=== PATIENT | female | born 1990 | race Two or more races ===

== ENCOUNTER 2024-09-12 12:23 | Emergency (ER) | payer MEDICAID, SELFPAY ==
[2024-09-12 12:36] VITALS: BP 117/69; PULSE 115; RESP 19; TEMP 39.2; O2SAT 96; BMI 30.8
--- NOTE | 2024-09-12 12:40 | XR_ITS ---
Examination: CT abdomen and pelvis without contrast. Coronal 3-D reconstructions. Sagittal 2-D reconstructions. Date and time of exam: September 12, 2024 at 1342 hours INDICATIONS: Right-sided flank pain with nausea today CTDI: vol (mGy): 8.78 DLP: (mGycm): 487 Technique: Axial images of the abdomen have been obtained, 3 mm slice thickness Intravenous contrast material has not been administered. Low dose protocols were performed. One or more of the following dose reduction techniques were used; automated exposure control, adjustment of the mA and/or KV according to patient size, use of iterative reconstruction technique. Findings: No focal liver or splenic lesions Hepatomegaly 21 cm No gallstones No pancreatic or adrenal mass Mild right hydronephrosis, 9 mm lower pole calculus, 14 mm calculus in the right renal pelvis No left hydronephrosis Aorta normal size Normal appendix No bowel obstruction Retroverted uterus No bladder mass or bladder calculi Intact osseous structures IMPRESSION: Mild right hydronephrosis 9 mm lower pole right renal calculus 14 mm calculus in the right renal pelvis
--- NOTE | 2024-09-12 12:41 | XR_ITS ---
Examination: AP chest single view Technique one AP portable upright chest single view Exam date and time: September 12, 2024 1304 hours INDICATIONS: Fever coughing today. FINDINGS: Normal heart size Lungs are clear. The osseous structures are intact IMPRESSION: No active disease
--- NOTE | 2024-09-12 12:42 | XR_ITS ---
Examination: Abdomen sonogram, Limited Date and time of exam: September 12, 2024 1341 hours INDICATIONS: Right-sided abdominal pain beginning 3 days ago with fever Technique: Real-time blackwell scale transabdominal sonographic images of the upper abdomen obtained. Findings: Normal gallbladder Normal common bile duct 0.3 cm Pancreatic head 2.2 cm Liver 17.8 cm smooth contour no focal liver lesions Normal hepatopedal portal venous flow Patent IVC IMPRESSION: Normal gallbladder Normal common bile duct Moderate hepatomegaly no focal liver lesions
--- NOTE | 2024-09-12 12:51 | PC.NURSE ---
pt here with c/o right abd pain X 2 days
[2024-09-12] MEDS: SODIUM CHLORIDE 0.9% 1000 ML 1,000 ML 999 ML IV (12:54)
[2024-09-12] MEDS: KETOROLAC INJ 30 MG/ML VIAL IVP (12:55)
[2024-09-12] MEDS: MORPHINE SULF INJ 10 MG/ML VIAL 4 MG IVP (12:57)
[2024-09-12] MEDS: ONDANSETRON INJ 2 MG/ML INJ 2 ML 4 MG IV (13:00)
[2024-09-12] MEDS: ACETAMINOPHEN IVPB 1,000 MG/100 ML VIAL 250 MG IV (13:01)
[2024-09-12 13:05] LABS: Lactate (Lactic Acid) 2.1 mMol/L (0.4-2.0)
[2024-09-12 13:06] VITALS: BP 120/70; PULSE 123; RESP 18; O2SAT 97
[2024-09-12 13:06] LABS: Collection Type, Urine Clean Catch
[2024-09-12 13:10] LABS: Basophils % (Auto) 0 % (0-2.5); Eosinophils % (Auto) 0 % (0-10); Hematocrit 39.3 % (36.0-46.0); Hemoglobin 13.6 g/dL (12.0-16.0); Immature Granulocytes % (Auto) 1 % (0-0); Immature Granulocytes Auto 0.17 Thou/mm3 (0.00-0.00); Lymphocytes # (Auto) 0.5 Thou/mm3 (1.0-4.8); Lymphocytes % (Auto) 2 % (10-50); Mean Corpuscular HGB Conc 34.6 g/dl (31.0-37.0); Mean Corpuscular Hemoglobin 30.2 pg (25.0-35.0); Mean Corpuscular Volume 87 fL (80-100); Monocytes # (Auto) 0.8 Thou/mm3 (0.0-0.8); Monocytes % (Auto) 4 % (0-12); Neutrophils # (Auto) 22.2 Thou/mm3 (1.8-7.7); Neutrophils % (Auto) 94 % (37-80); Nucleated Red Blood Cell % 0 /100 WBC (0); Platelet Count 264 Thou/mm3 (140-440); RDW Standard Deviation 40.6 fL (36.4-46.3); White Blood Count 23.7 Thou/mm3 (3.6-11.0)
[2024-09-12 13:11] LABS: HCG Qualitative,Urine Negative
--- NOTE | 2024-09-12 13:19 | PD.EDABDPN ---
ED Abdominal Pain RME/HPI General Chief Complaint: Abdominal Pain Stated complaint: Abdominal pain right lower, vomiting Time seen by provider: 09/12/24 12:27 Arrival date/time: 09/12/24 12:23 RME / HPI RME / HPI narrative: This section includes all my notes and documentations, including HPI, PE, and ED course.? Delmer Mccann MD HPI: 34 year old female presents to the ED for a couple days of right flank pain. With subjective fever and chills on and off. No severe body aches and malaise. No dysuria or hematuria or difficulty urinating or other urinary symptoms. No cough or congestion. No sore throat. No constipation or diarrhea. No history abdominal surgery. No other complaints. ROS: All negative except as documented in HPI. Physical Exam: General:? Alert and oriented.? No acute distress when remaining still.?? Eyes:? Conjunctivae and lids clear.? ENT:? No nasal congestion.? Neck:? Supple.? Heart:? RRR.? Lungs:? No respiratory distress.? Good air movement.? No rhonchi, wheezing, rales.?? Abdomen:? Soft with right sided tenderness, difficult to localize further. Normal BS. No distension. No guarding or reboud. Back: Equivocal right CVA tenderness. Skin:? Warm and dry.?? Neuro:? Alert and oriented X 3.?? I reviewed all diagnostic test results. My interpretation of the chest x-ray is no active disease. My review of the abdomen/pelvis CT report is no acute findings. My review of the gallbladder ultrasound report is normal gallbladder, normal common bile duct. Blood tests remarkable for WBC 23.7 and LA 2.1. UA showed RBC and WBC and bacteria. At this point, diagnoses include?kidney infection. Treatment here included?IVF, Zofran, Toradol, Morphine, and Rocephin. Significant improvement noted. Recommended admission for pyelonephritis and possible sepsis. Patient declined. Discussed risks, including being fatal. We still couldn't change her mind. Based on my best medical judgment, made decision no further evaluation or treatment indicated at this time.? Patient understands and agrees to the discharge instructions customized and printed, see below. Discharge instructions from Dr. Mccann: 1. After evaluation, you have right kidney infection. We are going to treat this at home as you elected. 2. Take cefdinir to kill the germs causing the infection.? Increase oral fluid to flush it out.? Maintain clear urine.? If dark or yellow, increase oral fluid. 3. Zofran for nausea/vomiting.? Toradol and Tylenol with codeine for pain. 4. See a private doctor on 09/15/2024 for recheck.? Ask to check the final urine culture results from today to make sure cefdinir doesn't need to be changed due to resistance. 5. Seek immediate medical care with worsening, fever, or with any concerns. Delmer Mccann MD Related Data Home Medications ?Medication ?Instructions ?Recorded ?Confirmed ferrous sulfate 325 mg (65 mg 325 mg PO QDAY 02/12/20 02/12/20 iron) tablet (iron) folic acid 1 mg tablet 1 mg PO QDAY 02/12/20 02/12/20 vit no.95-ferrous 1 tab PO QDAY 02/12/20 02/12/20 fumarate 28 mg-folic acid 800 mcg tablet () metformin 500 mg tablet 500 mg PO BID 09/13/24 09/13/24 Previous Rx's ?Medication ?Instructions ?Recorded acetaminophen 300 mg-codeine 30 mg 2 tab PO TID PRN pain #20 tabs 09/12/24 tablet cefdinir 300 mg capsule 300 mg PO BID #14 caps 09/12/24 ketorolac 10 mg tablet 10 mg PO Q8H PRN pain 5 days #14 09/12/24 tabs ondansetron 4 mg disintegrating 4 mg PO TID PRN nausea and 09/12/24 tablet vomiting 5 days #10 tabs Allergies Allergy/AdvReac Type Severity Reaction Status Date / Time No Known Allergies Allergy Verified 02/12/20 11:50 Review of Systems Review of Systems Systems Reviewed: All systems reviewed, normal except as documented Past Medical History Past Medical History ENDOCRINE: Positive Diabetes Mellitus Type 2 HEMATOLOGIC: Positive Blood Disorders (BLOOD TRANSFUSION AFTER 1ST BABY) OTHER HISTORY: Positive Blood Transfusions (ANEMIC) Family History FAMILY HISTORY: Negative Family Psychiatric Problems, Family Respiratory Disorders, Family Cardiac Disorders, Family Gastrointestinal Problems, Family Cancer, Family Surgery or Family Anesthesia Reaction Surgical History SURGICAL: Positive Section (X2) Social History SMOKING STATUS: Never smoker SECOND HAND EXPOSURE: No ED Exam Narrative Physical exam: As noted in HPI Course Quality Measures none Orders Category Date Time Status Saline [Insert IV] NOW Care 09/12/24 12:[address] abdomen pelvis wo con Stat Exams 09/12/24 12:40 Completed US gall bladder Stat Exams 09/12/24 12:42 Completed XR chest 1V portable Stat Exams 09/12/24 12:41 Completed Amylase Stat Lab 09/12/24 12:55 Completed BMP [Basic Metabolic Panel] Stat Lab 09/12/24 12:55 Completed Blood Culture (Lab) Stat Lab 09/12/24 12:55 Results CBC Stat Lab 09/12/24 12:55 Completed CRP [C-Reactive Protein] Stat Lab 09/12/24 12:55 Completed ESR [Sed Rate (ESR)] Stat Lab 09/12/24 12:55 Completed HCG Qualitative,Urine Stat Lab 09/12/24 13:00 Completed HCG,Qualitative Serum Stat Lab 09/12/24 12:55 Completed Lactate (Lactic Acid) Stat Lab 09/12/24 12:55 Completed Lipase Stat Lab 09/12/24 12:55 Completed Liver Panel Stat Lab 09/12/24 12:55 Completed Magnesium Stat Lab 09/12/24 12:55 Completed Procalcitonin Stat Lab 09/12/24 12:55 Completed UA, C/S IF [Urinalysis, C/S if Indicated] Stat Lab 09/12/24 13:00 Completed Urine Culture Stat Lab 09/12/24 13:00 Completed Acetaminophen Ivpb [Ofirmev Inj] Med 09/12/24 12:37 Discontinued 1,000 mg in 100 ml IV NOW Ketorolac Inj [Toradol Inj] Med 09/12/24 12:37 Discontinued 30 mg IVP X1 ONE Morphine Inj Med 09/12/24 12:37 Discontinued 4 mg IVP X1 ONE Ondansetron Inj [Zofran Inj] Med 09/12/24 12:37 Discontinued 4 mg IV X1 ONE Sodium Chloride 0.9% 1000 ml [Ns] 1,000 ml Med 09/12/24 12:38 Discontinued IV 999 mls/hr cefTRIAXone [Rocephin] 1,000 mg Med 09/12/24 12:37 Discontinued Sodium Chloride 0.9% (P) [Ns 0.9% (P)] 50 ml IV X1 Vital Signs Vital signs: Vital Signs Temperature 102.6 F H 09/12/24 12:36 Pulse Rate 115 H 09/12/24 12:36 Respiratory Rate 19 09/12/24 12:36 Blood Pressure 117/69 09/12/24 12:36 Pulse Oximetry (%) 96 09/12/24 12:36 Oxygen Delivery Method Room Air 09/12/24 12:36 Pulse ox is 96% on room air which is adequate. Abdominal Pain MDM MDM Narrative MDM Narrative:: Tanika Sutton am scribing for and in the presence of Dr. Mccann. Patient data External records reviewed:: [facility] previous records (I reviewed H&P on 02/12/2020) Clinical information provided by:: patient Social determinants that could affect healthcare access:: none Patient has the following chronic illnesses:: No chronic medical hx reported How is presenting disease/condition affected by chronic disease/condition?: no chronic disease Evaluation data The following diagnostics were reviewed and interpreted by me:: lab results and radiology exam(s) Lab and/or radiology exams considered but not ordered:: None Interpretation Summary: Pyelonephritis Medications / Prescriptions Medications or Prescriptions considered but not ordered:: None Medication administrations:: Medication Administration History Discontinued Medications Acetaminophen (Ofirmev Inj) 1,000 mg in 100 mls @ 250 mls/hr IV NOW ONE Stop: 09/12/24 13:00 Last Infusion: 09/12/24 13:19 Dose: Infused Documented By: Admin: 09/12/24 13:01 Dose: 250 mls/hr Documented By: [facility] Ceftriaxone Sodium 1,000 mg/ (Sodium Chloride) 50 mls @ 100 mls/hr IV X1 ONE Stop: 09/12/24 13:06 Last Infusion: 09/12/24 13:41 Dose: Infused Documented By: Admin: 09/12/24 13:20 Dose: 100 mls/hr Documented By: Sodium Chloride (Ns) 1,000 mls @ 999 mls/hr IV .Q1H1M ONE Stop: 09/12/24 13:38 Last Infusion: 09/12/24 13:41 Dose: Infused Documented By: Admin: 09/12/24 12:54 Dose: 999 mls/hr Documented By: [facility] Ketorolac Tromethamine (Ketorolac Inj 30 Mg/Ml Vial) 30 mg IVP X1 ONE Stop: 09/12/24 12:38 Last Admin: 09/12/24 12:55 Dose: 30 mg Documented By: ORI Morphine Sulfate (Morphine Sulf Inj 10 Mg/Ml Vial) 4 mg IVP X1 ONE Stop: 09/12/24 12:38 Last Admin: 09/12/24 12:57 Dose: 4 mg Documented By: ORI Ondansetron HCl (Ondansetron Inj 2 Mg/Ml Inj 2 Ml) 4 mg IV X1 ONE; Protocol Stop: 09/12/24 12:38 Last Admin: 09/12/24 13:00 Dose: 4 mg Documented By: ORI Patient given toradol, morphine, Zofran, tylenol, ceftriaxone, IV fluids. Consultations Consultation(s) initiated? (list below): No Diagnosis Differential diagnosis abdominal pain: abdominal pain, calculus of kidney, constipation, diverticulitis, endometriosis, gastroenteritis, small bowel obstruction and other (UTI, Pyelonephritis ) Most likely diagnosis given after review of the tests above:: kidney infection Admission Indicated Admission indicated?: indicated Explain why admission is indicated or not indicated:: Patient declined hospitalization Admission Request Was there a request for admission?: No Admission Attestation Admission request attestation: Patient declined hospitalization Disposition Plan Disposition Plan: Discharge Discharge Attestation Discharge Attestation: The patient and all family members were given an opportunity to ask questions and understood the discharge instructions. Discharge instructions specifically effects, indications for sooner follow up or return to the emergency department, and the expected course of current diagnosis. Patient condition: Stable Discharge Plan Plan Patient Disposition: HOME (Self Care) Prescriptions/Referrals Prescriptions/Med Rec: New acetaminophen-codeine 300-30 mg tablet 2 tab PO TID MDD 6 PRN (Reason: pain) Qty: 20 0RF ketorolac 10 mg tablet 10 mg PO Q8H PRN (Reason: pain) 5 Days Qty: 14 0RF ondansetron 4 mg tablet,disintegrating 4 mg PO TID PRN (Reason: nausea and vomiting) 5 Days Qty: 10 0RF cefdinir 300 mg capsule 300 mg PO BID Qty: 14 0RF No Action PNV cmb#95-ferrous fumarate-FA [] 28 mg iron- 800 mcg Tablet 1 tab PO QDAY ferrous sulfate [iron] 325 mg (65 mg iron) Tablet 325 mg PO QDAY folic acid 1 mg Tablet 1 mg PO QDAY metformin 500 mg tablet 500 mg PO BID Referrals: Ottoniel Fitch MD [Primary Care Provider] - In 1 week Problem List Clinical Impression: Kidney infection Patient/Caregiver Discharge Instructions Discharge Activity: activity as tolerated Education Materials: ED Pyelonephritis, Female (Adult) Additional Instructions: Discharge instructions from Dr. Mccann: 1. After evaluation, you have right kidney infection. We are going to treat this at home as you elected. 2. Take cefdinir to kill the germs causing the infection.? Increase oral fluid to flush it out.? Maintain clear urine.? If dark or yellow, increase oral fluid. 3. Zofran for nausea/vomiting.? Toradol and Tylenol with codeine for pain. 4. See a private doctor on 09/15/2024 for recheck.? Ask to check the final urine culture results from today to make sure cefdinir doesn't need to be changed due to resistance. 5. Seek immediate medical care with worsening, fever, or with any concerns. Print Language: Congolese Stand Alone Forms: Anabella Award Info., Patient Portal Info Letter
[2024-09-12] MEDS: cefTRIAXone 1,000 MG in SODIUM CHLORIDE 0.9% (P) 50 ML 100 MG IV (13:20)
[2024-09-12 13:28] LABS: HCG,Qualitative Serum Negative
[2024-09-12 13:43] LABS: Alanine Aminotransferase 13 U/L (10-49); Albumin, Serum 4.8 gm/dL (3.5-5.0); Alkaline Phosphatase 114 U/L (46-116); Anion Gap 11 (7-16); Aspartate Amino Transferase 14 U/L (0-34); BUN/Creatinine Ratio 11 Ratio (12-20); Bilirubin,Direct 0.4 mg/dL (0.0-0.3); Bilirubin,Total 1.3 mg/dL (0.3-1.2); Blood Urea Nitrogen 11 mg/dL (9-23); Calcium 9.5 mg/dL (8.3-10.6); Carbon Dioxide 21.7 mMol/L (20.0-31.0); Chloride 104 mMol/L (98-107); Estimated Creatinine Clearance 69.4 mL/min (>60); Glucose 153 mg/dL (74-106); Lipase 32 U/L (12-53); Magnesium 1.8 mg/dL (1.6-2.6); Osmolality,Calculated 276 (275-295); Potassium 3.6 mMol/L (3.4-5.1); Sodium 137 mMol/L (136-145); Total Protein 7.8 gm/dL (5.7-8.2); eGFR > 60 See Note
[2024-09-12 13:52] LABS: Bacteria,Urine Rare; Bilirubin,Urine Negative (Negative); Blood,Urine 1+ (Negative); Color,Urine Yellow (Lt Yel-Yel); Glucose, Urine Negative (Negative); Ketones,Urine Negative (Negative); Leukocyte Esterase,Urine Positive (Negative); Nitrite,Urine Negative (Negative); Protein,Urine 1+ (Neg - Trace); RBC,Urine 16 /hpf (0-3); Specific Gravity,Urine 1.031 (1.001-1.035); Squamous Epithelial Cell,Urine 10 /hpf (0-5); Urobilinogen,Urine Negative mg/dL (0.0-1.0); WBC,Urine 169 /hpf (0-5)
[2024-09-12 13:53] LABS: Clarity,Urine Hazy (Clear/Hazy); Culture Indicated,Urine Yes
[2024-09-12 14:00] VITALS: BP 100/60; PULSE 97; RESP 16; TEMP 36.9; O2SAT 96
[2024-09-12 14:03] LABS: Amylase 50 U/L (30-118); C-Reactive Protein 11.9 mg/dL (0.0-0.9); Procalcitonin 1.93 ng/ml (0.0-0.49)
[2024-09-12 14:16] LABS: Sed Rate (ESR) 62 mm/hr (0-20)
[2024-09-12 15:35] VITALS: BP 104/56; PULSE 108; RESP 16; O2SAT 98
[2024-09-12 16:03] LABS: Reflex Lactate? Y
== END 2024-09-12 15:35 | disposition home or self-care (01) ==
PROVIDERS: Emergency Provider Emergency Medicine; PCP Family Medicine
DX: N15.9 Renal tubulo-interstitial disease, unspecified (principal)
CPT/HCPCS: 36415; 71045; 74176; 76705; 80048; 80076; 81001; 81025; 82150; 83605; 83690; 83735; 84145; 84703; 85025; 85652; 86140; 87040; 87077; 87086; 87186; 96365; 96375; 99284; J0131; J0696; J1885; J2270; J2405; J7030; J7050

== ENCOUNTER 2024-09-12 20:02 | Inpatient (IN) | payer MEDICAID, SELFPAY ==
[2024-09-12] VITALS (8 sets, daily range): BP systolic 87–108; BP diastolic 49–67; PULSE 112–156; RESP 19–25; TEMP 36.8–39.5; O2SAT 95–97; BMI 30.8
--- NOTE | 2024-09-12 20:11 | PD.EDSYNC ---
ED Syncope RME/HPI General Chief Complaint: Syncope / Near Syncope Stated Complaint: NEAR SYNCOPE Time Seen by Provider: 09/12/24 20:10 Source: patient and EMS Arrival date/time: 09/12/24 20:02 Mode of arrival: EMS Limitations: no limitations RME / HPI RME / HPI narrative: Dr. Galeana?s Main ED Evaluation: A 34-year-old female was brought in by ambulance for evaluation following a near-syncopal episode. She had recently been seen at this facility earlier today by the previous provider with a clinical impression of a kidney infection and returns after experiencing shakes after starting her prescribed antibiotics (Cefdinir 300 mg BID). Per EMS report, the patient was diaphoretic on scene, tachycardic with a heart rate of 170 bpm, a temperature of 103?F, a blood sugar level of 196 mg/dL, and a blood pressure of 130/90. The patient reports right flank pain but notes that her symptoms have improved somewhat after receiving pain relief medication. Related Data Home Medications ?Medication ?Instructions ?Recorded ?Confirmed ferrous sulfate 325 mg (65 mg 325 mg PO QDAY 02/12/20 02/12/20 iron) tablet (iron) folic acid 1 mg tablet 1 mg PO QDAY 02/12/20 02/12/20 metformin 500 mg tablet 500 mg PO BID 09/13/24 09/13/24 Previous Rx's ?Medication ?Instructions ?Recorded acetaminophen 300 mg-codeine 30 mg 2 tab PO TID PRN pain #20 tabs 09/12/24 tablet acetaminophen 500 mg tablet 1,000 mg (2 x 500 mg) PO Q6H PRN 09/15/24 fever >99 5 days #20 tabs cephalexin 500 mg capsule 1,000 mg (2 x 500 mg) PO Q6H 11 09/15/24 days #88 caps omeprazole 40 mg capsule,delayed 40 mg PO QDAY 11 days #11 caps 09/15/24 release Allergies Allergy/AdvReac Type Severity Reaction Status Date / Time No Known Allergies Allergy Verified 02/12/20 11:50 Review of Systems Review of Systems Systems Reviewed: All systems reviewed, normal except as documented Past Medical History Past Medical History NEUROLOGIC: Negative Neurological Disorders or Seizures CARDIAC: Negative Cardiac Disorders or Congestive Heart Failure RESPIRATORY: Negative Chronic Obstructive Pulmonary Disease (COPD) GASTROINTESTINAL: Negative Gastrointestinal Disorders GENITOURINARY: Negative Genitourinary Disorders or Renal Disease MUSCULOSKELETAL: Negative Musculoskeletal Disorders ENDOCRINE: Positive Diabetes Mellitus Type 2; Negative Endocrine Disorders or Diabetes Mellitus Type 1 HEMATOLOGIC: Positive Blood Disorders (BLOOD TRANSFUSION AFTER 1ST BABY) OTHER HISTORY: Positive Blood Transfusions (ANEMIC); Negative Autoimmune Disease, Blood Transfusion Reaction or Anesthesia Reactions Family History FAMILY HISTORY: Negative Family Psychiatric Problems, Family Respiratory Disorders, Family Cardiac Disorders, Family Gastrointestinal Problems, Family Cancer, Family Surgery or Family Anesthesia Reaction Surgical History SURGICAL: Positive Section (X2) Social History SMOKING STATUS: Never smoker SECOND HAND EXPOSURE: No ED Exam Narrative Physical exam: GENERAL APPEARANCE: alert and oriented x 4, well-developed, well-nourished, no acute distress VITALS: All vitals were reviewed and the pulse ox is 96% on room air, which is normal according to my interpretation. HEENT: Normocephalic, atraumatic; pupils equal, round, reactive to light; EOMI; mucous membranes pink, moist; oropharynx clear NECK: Supple LUNGS: CTABL; no wheezes, no rales, no rhonchi HEART: Regular rate, regular rhythm; normal S1, S2; no murmurs ABDOMEN: non distended; normal BS; soft, no tenderness, no guarding, no rebound; no masses, no organomegaly, no hernia BACK: no CVA tenderness EXTREMITIES: atraumatic; no edema NEUROLOGIC: awake; alert and oriented x4; cranial nerves II-XII grossly intact; no focal sensory or motor deficits PSYCHIATRIC: appropriate mood and affect SKIN: warm, dry, normal color; no rashes General Limitations: Present no limitations Course Course Course Narrative: CXR is ordered for determining etiology of chest discomfort. 2010 Sepsis alert initiated. Orders made at this time are congruent with ED Adult Sepsis Order List. Re-evaluation is to be completed. 2040 Sepsis reassessment performed consisting of lab review, vitals, physical exam including auscultation of heart, lungs, and visual evaluation of capillary refills, mucosal membranes and extremities. Quality Measures Current suspected stage: sepsis Possible source: unknown Blood cultures ordered: completed in ED Antibiotic ordered: No Pertinent labs: 09/12/24 20:54 Lactic Acid 4.5 H* mMol/L (0.4-2.0) Procalcitonin 3.75 H ng/ml (0.0-0.49) Patient was seen less than 12 hours with sepsis work-up sepsis Orders Category Date Time Status Bedside COVID-19 Antigen Test NOW Care 09/12/24 21:51 Completed Manager Retention STAT Care 09/12/24 20:31 Completed Continuous Pulse Oximetry STAT Care 09/12/24 20:31 Completed EKG (ED ONLY) *Do not use* NOW Care 09/12/24 20:31 Completed In and Out Catheter X1PRN Care 09/12/24 20:31 Completed Insert IV NOW Care 09/12/24 20:31 Completed NPO STAT Care 09/12/24 20:31 Completed Strict Intake and Output Routine Care 09/12/24 20:31 Ordered EKG (ED Only) Stat Exams 09/12/24 20:31 Ordered XR chest 1V portable Stat Exams 09/12/24 20:30 Completed CBC Stat Lab 09/12/24 20:54 Completed Comprehensive Metabolic Panel Stat Lab 09/12/24 20:54 Completed LDH (Lactate Dehydrogenase) Stat Lab 09/12/24 20:54 Completed Lactate (Lactic Acid) Stat Lab 09/12/24 20:54 Completed Lipase Stat Lab 09/12/24 20:54 Completed Magnesium Stat Lab 09/12/24 20:54 Completed Phosphorous Stat Lab 09/12/24 20:54 Completed Procalcitonin Stat Lab 09/12/24 20:54 Completed Troponin I Stat Lab 09/12/24 20:54 Completed Doxycycline Inj [Vibramycin Inj] 200 mg Med 09/12/24 22:04 Discontinued Sodium Chloride 0.9% 250 ml [Ns] 250 ml IV X1 Ketorolac Inj [Toradol Inj] Med 09/12/24 20:30 Discontinued 30 mg IVP X1 ONE Magnesium Sulfate 2 GM Ivpb [Magnesium Sulfate Ivpb] Med 09/12/24 22:00 Discontinued 2 gm in 50 ml IV X1 Piper/Tazo Inj [Zosyn Inj] 3.375 gm Med 09/12/24 22:04 Discontinued Sodium Chloride 0.9% (P) [Ns 0.9% (P)] 50 ml IV X1 Sodium Chloride 0.9% 1000 ml [Ns] 1,000 ml Med 09/12/24 20:37 Discontinued IV 999 mls/hr Sodium Chloride 0.9% 1000 ml [Ns] 1,000 ml Med 09/12/24 22:00 Discontinued IV 999 mls/hr Sodium Chloride 0.9% 1000 ml [Ns] 1,365 ml Med 09/12/24 20:30 Discontinued IV 1,365 mls/hr Oxygen Delivery NOW RT 09/12/24 20:31 Completed Vital Signs Vital signs: Vital Signs Temperature 103.1 F H 09/12/24 20:08 Pulse Rate 156 H 09/12/24 20:08 Respiratory Rate 19 09/12/24 20:08 Blood Pressure 108/67 09/12/24 20:08 Pulse Oximetry (%) 95 09/12/24 20:08 Syncope MDM Narrative MDM Narrative:: Scribe Attestation: IPelon am scribing for and in the presence of Dr. Galeana. Provider Notation: Although this document has been carefully reviewed, there may still be some phonetic and other typographical errors. These errors are purely grammatical due to imperfections in the software program and should not be construed in any way to compromise the substance of the patient's medical care during this visit. Patient data External records reviewed:: [facility] previous records and EMS form Clinical information provided by:: patient and EMS Social determinants that could affect healthcare access:: none Patient has the following chronic illnesses:: See PMH How is presenting disease/condition affected by chronic disease/condition?: uneffected by Evaluation data The following diagnostics were reviewed and interpreted by me:: lab results and radiology exam(s) Lab and/or radiology exams considered but not ordered:: None Interpretation Summary: I personally reviewed the radiology data and agree with the radiologist's interpretation. Examination: AP chest single view TECHNIQUE: AP portable upright chest single view Exam date and time: September 12, 2024 2037 hours Comparison September 12, 2024 1304 hours INDICATIONS: Sepsis alert FINDINGS: Normal heart size Lungs are clear. The osseous structures are intact IMPRESSION: No active disease Dictated By: Jose Antonio Phelps MD Medications / Prescriptions Medications or Prescriptions considered but not ordered:: None Medication administrations:: Medication Administration History Discontinued Medications Acetaminophen (Acetaminophen 325 Mg Tablet) 650 mg PO Q6H PRN PRN Reason: Fever >101.5 Stop: 10/12/24 23:26 Acetaminophen (Acetaminophen 500 Mg Tablet) 1,000 mg PO X1 ONE Stop: 09/13/24 07:30 Last Admin: 09/13/24 07:36 Dose: 1,000 mg Documented By: CATRINA Acetaminophen (Acetaminophen 500 Mg Tablet) Confirm Administered Dose 1,000 mg PO .STK-MED ONE Stop: 09/13/24 07:28 Last Admin: 09/13/24 10:15 Dose: Not Given Documented By: CATRINA Non-Admin Reason: duplicate Acetaminophen (Acetaminophen 325 Mg Tablet) 650 mg PO Q6H PRN PRN Reason: Fever >100.3 Stop: 10/12/24 23:26 Last Admin: 09/15/24 01:08 Dose: 650 mg Documented By: HANH Comments: ok to give for rangel Admin: 09/14/24 14:23 Dose: 650 mg Documented By: Admin: 09/13/24 23:32 Dose: 650 mg Documented By: HANH Acetaminophen (Acetaminophen 325 Mg Tablet) 650 mg PO Q6H PRN PRN Reason: Fever >100.3 or mild pain Stop: 10/12/24 23:26 Acetaminophen (Acetaminophen 500 Mg Tablet) 1,000 mg PO Q6HR PRN PRN Reason: fever >100 Stop: 10/15/24 09:40 Al Hydrox/Mg Hydrox/Simethicone (Mg Hyd/Al Hyd/Meeta (Maalox Reg) Susp 30 Ml Udc) 30 ml PO X1 ONE Stop: 09/14/24 19:33 Last Admin: 09/14/24 20:27 Dose: 30 ml Documented By: HANH Celecoxib (Celecoxib 100 Mg Capsule) 100 mg PO BID PRN PRN Reason: pain Stop: 10/13/24 08:59 Celecoxib (Celecoxib 100 Mg Capsule) 100 mg PO BID PRN PRN Reason: PAIN 1-6 (mild-mod Stop: 10/13/24 08:59 Last Admin: 09/13/24 16:06 Dose: 100 mg Documented By: CATRINA Celecoxib (Celecoxib 100 Mg Capsule) 100 mg PO BID PRN PRN Reason: PAIN SCALE 4-6 (Moderate Stop: 10/13/24 08:59 Last Admin: 09/14/24 15:40 Dose: 100 mg Documented By: CATRINA Dextrose (Dextrose 50%-Water Inj 50 Ml Syringe) 25 ml IV Q15MIN PRN PRN Reason: BG 50-70 responsive npo pt Stop: 10/13/24 03:12 Dextrose (Dextrose 50%-Water Inj 50 Ml Syringe) 50 ml IV Q15MIN PRN PRN Reason: BG <50 OR BG <70 & pt unresponsive Stop: 10/13/24 03:12 Enoxaparin Sodium (Enoxaparin Sod Inj 40 Mg/0.4 Ml Syringe) 40 mg SC QDAY BOGDAN Stop: 09/27/24 08:59 Last Admin: 09/15/24 10:57 Dose: 40 mg Documented By: Admin: 09/14/24 09:03 Dose: 40 mg Documented By: Admin: 09/13/24 08:37 Dose: 40 mg Documented By: CATRINA Glucagon (Glucagon Inj 1 Mg Vial) 1 mg IM Q15MIN PRN PRN Reason: BG <70, and no IV access Sodium Chloride (Ns) 1,365 mls @ 1,365 mls/hr 30 ml/kg infuse over 60 min (1365 ml) IV .Q1H ONE Stop: 09/12/24 21:29 Last Infusion: 09/12/24 22:14 Dose: Infused Documented By: Admin: 09/12/24 21:14 Dose: 1,365 mls/hr Documented By: KVNG Sodium Chloride (Ns) 1,000 mls @ 999 mls/hr IV .Q1H1M ONE Stop: 09/12/24 21:37 Last Infusion: 09/12/24 22:14 Dose: Infused Documented By: Admin: 09/12/24 21:13 Dose: 999 mls/hr Documented By: KVNG Magnesium Sulfate (Magnesium Sulfate Ivpb) 2 gm in 50 mls @ 25 mls/hr IV X1 ONE Stop: 09/12/24 23:59 Last Infusion: 09/13/24 00:21 Dose: Infused Documented By: Admin: 09/12/24 22:21 Dose: 25 mls/hr Documented By: KVNG Sodium Chloride (Ns) 1,000 mls @ 999 mls/hr IV .Q1H1M ONE Stop: 09/12/24 23:00 Last Infusion: 09/12/24 23:22 Dose: Infused Documented By: Admin: 09/12/24 22:21 Dose: 999 mls/hr Documented By: KVNG Doxycycline Hyclate 200 mg/ (Sodium Chloride) 250 mls @ 125 mls/hr IV X1 ONE Stop: 09/13/24 00:03 Last Infusion: 09/13/24 00:58 Dose: Infused Documented By: Admin: 09/12/24 22:58 Dose: 125 mls/hr Documented By: KVNG Piperacillin Sod/Tazobactam (Sod 3.375 gm/ Sodium Chloride) 50 mls @ 100 mls/hr IV X1 ONE Stop: 09/12/24 22:33 Last Infusion: 09/12/24 22:51 Dose: Infused Documented By: Admin: 09/12/24 22:21 Dose: 100 mls/hr Documented By: KVNG Piperacillin/Tazobactam/Dextrose (Zosyn) 3.375 gm in 50 mls @ 12.5 mls/hr IV Q8HR BOGDAN Stop: 09/20/24 05:59 Last Admin: 09/14/24 05:32 Dose: 12.5 mls/hr Documented By: Infusion: 09/14/24 01:24 Dose: Infused Documented By: Admin: 09/13/24 21:24 Dose: 12.5 mls/hr Documented By: Infusion: 09/13/24 17:45 Dose: Infused Documented By: Admin: 09/13/24 13:45 Dose: 12.5 mls/hr Documented By: Infusion: 09/13/24 09:13 Dose: Infused Documented By: Admin: 09/13/24 05:13 Dose: 12.5 mls/hr Documented By: HANH Lactated Ringer's (Lactated Ringers) 1,000 mls @ 100 mls/hr IV .Q10H ONE Stop: 09/13/24 10:07 Last Admin: 09/13/24 00:25 Dose: 100 mls/hr Documented By: KVNG Magnesium Sulfate (Magnesium Sulfate Ivpb) 2 gm in 50 mls @ 25 mls/hr IV X1 ONE Stop: 09/13/24 09:40 Last Admin: 09/13/24 10:27 Dose: 25 mls/hr Documented By: CATRINA Sodium Chloride (Ns) 1,000 mls @ 125 mls/hr IV .Q8H BOGDAN Stop: 09/14/24 11:51 Last Admin: 09/13/24 12:12 Dose: 125 mls/hr Documented By: CATRINA Lactated Ringer's (Lactated Ringers) 1,000 mls @ 999 mls/hr IV .Q1H1M ONE Stop: 09/13/24 13:24 Last Admin: 09/13/24 12:36 Dose: 999 mls/hr Documented By: CATRINA Sodium Chloride (Ns) 1,000 mls @ 150 mls/hr IV .Q6H40M [facility] Stop: 09/14/24 15:04 Last Admin: 09/14/24 12:22 Dose: 150 mls/hr Documented By: Infusion: 09/14/24 12:13 Dose: Infused Documented By: Admin: 09/14/24 05:32 Dose: 150 mls/hr Documented By: Infusion: 09/14/24 01:56 Dose: Infused Documented By: Admin: 09/13/24 19:15 Dose: 150 mls/hr Documented By: Admin: 09/13/24 12:37 Dose: Not Given Documented By: GC Non-Admin Reason: already infusing, rate changed to 150ml/hr Sodium Chloride (Ns) 500 mls @ 999 mls/hr IV .Q31M ONE Stop: 09/13/24 23:57 Last Admin: 09/13/24 23:49 Dose: 999 mls/hr Documented By: HANH Ceftriaxone Sodium/Dextrose (Rocephin/D5w 2gm) 2 gm in 50 mls @ 100 mls/hr IV QDAY [facility] Stop: 09/21/24 09:59 Last Admin: 09/15/24 10:57 Dose: 100 mls/hr Documented By: Infusion: 09/14/24 12:52 Dose: Infused Documented By: Admin: 09/14/24 12:22 Dose: 100 mls/hr Documented By: CATRINA Lactated Ringer's (Lactated Ringers) 500 mls @ 999 mls/hr IV .Q31M ONE Stop: 09/15/24 01:43 Last Admin: 09/15/24 01:35 Dose: 999 mls/hr Documented By: HANH Insulin Human Lispro (Insulin Lispro (Admelog) 1 Unit/0.01 Ml Unit) 0 unit SC [facility]; Protocol Stop: 10/13/24 07:29 Last Admin: 09/13/24 12:01 Dose: Not Given Documented By: GC Non-Admin Reason: Per Protocol Admin: 09/13/24 08:48 Dose: Not Given Documented By: GC Non-Admin Reason: Per Protocol Insulin Human Lispro (Insulin Lispro (Admelog) 1 Unit/0.01 Ml Unit) 0 unit SC AC BOGDAN; Protocol Stop: 10/13/24 16:59 Last Admin: 09/15/24 11:53 Dose: 1 unit Documented By: BRENDA Co-signed By: VELIA Admin: 09/15/24 11:12 Dose: Not Given Documented By: VELIA Non-Admin Reason: Per Protocol Admin: 09/14/24 17:04 Dose: Not Given Documented By: GC Non-Admin Reason: Per Protocol Admin: 09/14/24 12:10 Dose: Not Given Documented By: GC Non-Admin Reason: Per Protocol Admin: 09/14/24 07:44 Dose: Not Given Documented By: GC Non-Admin Reason: Per Protocol Admin: 09/13/24 17:16 Dose: Not Given Documented By: GC Non-Admin Reason: Per Protocol Ketorolac Tromethamine (Ketorolac Inj 30 Mg/Ml Vial) 30 mg IVP X1 ONE Stop: 09/12/24 20:31 Last Admin: 09/12/24 21:14 Dose: 30 mg Documented By: KVNG Ketorolac Tromethamine (Ketorolac Inj 30 Mg/Ml Vial) 15 mg IVP Q8H PRN PRN Reason: PAIN SCALE 7-10 (Severe Stop: 09/18/24 00:29 Ketorolac Tromethamine (Ketorolac Inj 30 Mg/Ml Vial) 30 mg IVP X1 ONE Stop: 09/15/24 02:06 Last Admin: 09/15/24 02:23 Dose: 30 mg Documented By: AL Magnesium Hydroxide (Milk Of Magnesia Susp 30 Ml Udc) 30 ml PO QDAY PRN; Protocol PRN Reason: CONSTIPATION Stop: 10/12/24 23:26 Morphine Sulfate (Morphine Sulf Inj 10 Mg/Ml Vial) 2 mg IVP X1 ONE Stop: 09/13/24 07:29 Last Admin: 09/13/24 07:36 Dose: 2 mg Documented By: GC Morphine Sulfate (Morphine Sulf Inj 10 Mg/Ml Vial) Confirm Administered Dose 10 mg .ROUTE .STK-MED ONE Stop: 09/13/24 07:26 Last Admin: 09/13/24 10:14 Dose: Not Given Documented By: GC Non-Admin Reason: duplicate Morphine Sulfate (Morphine Sulf Inj 10 Mg/Ml Vial) 2 mg IVP X1 ONE Stop: 09/14/24 14:04 Last Admin: 09/14/24 14:12 Dose: 2 mg Documented By: CATRINA Morphine Sulfate (Morphine Sulf Inj 10 Mg/Ml Vial) 2 mg IVP Q6HR PRN PRN Reason: Pain 7-10 Stop: 09/19/24 15:35 Morphine Sulfate (Morphine Sulf Inj 10 Mg/Ml Vial) 2 mg IVP Q6HR PRN PRN Reason: BREAKTHROUGH PAIN (SEVERE) Stop: 09/19/24 15:35 Last Admin: 09/15/24 01:05 Dose: 2 mg Documented By: HANH Ondansetron HCl (Ondansetron Inj 2 Mg/Ml Inj 2 Ml) 4 mg IV Q6H PRN; Protocol PRN Reason: NAUSEA OR VOMITING Stop: 10/12/24 23:26 Last Admin: 09/14/24 14:13 Dose: 4 mg Documented By: Admin: 09/13/24 07:35 Dose: 4 mg Documented By: CATRINA Pantoprazole Sodium (Pantoprazole Inj 40 Mg Vial) 40 mg IVP QDAY [facility] Stop: 10/15/24 09:44 Last Admin: 09/15/24 10:56 Dose: 40 mg Documented By: BRENDA Phenazopyridine HCl (Phenazopyridine Hcl 100 Mg Tablet) 100 mg PO TIDWM [facility] Stop: 09/14/24 17:31 Last Admin: 09/14/24 19:03 Dose: 100 mg Documented By: Admin: 09/14/24 12:23 Dose: 100 mg Documented By: Admin: 09/14/24 09:03 Dose: 100 mg Documented By: Admin: 09/13/24 17:16 Dose: 100 mg Documented By: Admin: 09/13/24 12:12 Dose: 100 mg Documented By: Admin: 09/13/24 08:37 Dose: 100 mg Documented By: CATRINA Potassium Chloride (Potassium Chloride 20 Meq Tabcr) 40 meq PO X1 ONE Stop: 09/15/24 08:34 Last Admin: 09/15/24 11:13 Dose: 40 meq Documented By: BRENDA Potassium Phos/Sodium Phos (Naph,[facility] Mbdb 1 Packet (1.5 Gm)) 1 packet PO X1 ONE Stop: 09/13/24 00:31 Last Admin: 09/13/24 01:58 Dose: 1 packet Documented By: HANH Sennosides (Senna Tablet) 1 tab PO QDAY PRN; Protocol PRN Reason: CONSTIPATION Stop: 10/13/24 05:21 Last Admin: 09/13/24 05:32 Dose: 1 tab Documented By: HANH Tramadol HCl (Tramadol Hcl 50 Mg Tablet) 50 mg PO Q6HR PRN PRN Reason: Pain 7-10 Stop: 09/18/24 00:07 Last Admin: 09/14/24 12:23 Dose: 50 mg Documented By: Admin: 09/13/24 19:15 Dose: 50 mg Documented By: HANH As above Consultations Consultation(s) initiated? (list below): Yes Consultation #1 (Physician, Specialty, Details): Case d/w Dr. Santos's resident who was made aware of the patient?s HPI, PMHx, lab and/or radiology results. Treatment plan was discussed. Will come evaluate the patient. Time: 21:50 Consultation #2 (Physician, Specialty, Details): I had an extensive conversation with Dr. Santos, hospitalist on-call, who expressed concerns over possible complicated UTI and is requesting us to consult with urology prior to admitting the patient. Time: 22:53 Consultation #3 (Physician, Specialty, Details): Dr. Santos accepts the patient for admission. Time: 23:11 Diagnosis Syncope Differential Diagnosis: other Most likely diagnosis given after review of the tests above:: See clinical impression Admission Indicated Admission indicated?: indicated Admission Request Was there a request for admission?: Yes Admission Attestation Admission request attestation: Discussed case with [] from Hospitalist service regarding admission. Discussed patients ED course, exam findings, labs, and radiology results. The Hospitalist [agrees,declines] to accept the patient for admission. Disposition Plan Disposition Plan: Admit Critical Care Time Critical Care Time Critical Care Time: Yes Total Critical Care Time (min.): 45 Attestation: The high probability of sudden, clinically significant deterioration in the patient?s condition required the highest level of my preparedness to intervene urgently. ? The services I provided to this patient were to treat and/or prevent clinically significant deterioration. Services included the following: chart data review, reviewing nursing notes and/or old charts, documentation time, hospice care consultant collaboration regarding findings and treatment options, medication orders and management, direct patient care, vital sign assessments and ordering, interpreting and reviewing diagnostic studies and lab tests. ? Aggregate critical care time includes only time during which I was engaged in work directly related to the patient?s care, as described above, whether at bedside or elsewhere in the Emergency Department. It did not include time spent performing other reported procedures or the services of residents, students, nurses or physician assistants. Discharge Plan Plan Patient Disposition: Admit Acute Care w/in Hospital Problem List Clinical Impression: Sepsis, Urinary tract infection Patient/Caregiver Discharge Instructions Other Activity Instructions:: Take two capsules of cephalexin four times a day with food until antibiotic course is finished Take omeprazole 40 mg once a day until antibiotic course is finished Stop taking cefdinir as we are replacing this antibiotic Stop taking ketorolac due to worsening of gastritis symptoms We recommend taking celebrex over the counter if you need for pain, or tylenol. Payne dos c?psulas de cefalexina cuatro veces al d?a con las comidas hasta finalizar el tratamiento con antibi?ticos. Payne omeprazol 40 mg jerrica vez al d?a hasta finalizar el tratamiento con antibi?ticos. Deje de doreen cefdinir ya que estamos reemplazando dai antibi?elizabeth. Deje de doreen ketorolaco debido al empeoramiento de los s?ntomas de la gastritis Recomendamos doreen celebrex sin receta si lo necesita para el dolor o tylenol. Diet Instructions: diet as preadmission
--- NOTE | 2024-09-12 20:22 | PC.NURSE ---
First contact with pt in Room 6, pt changed into gown, connected to bedside monitoring tech, call light within reach.
--- NOTE | 2024-09-12 20:30 | XR_ITS ---
Examination: AP chest single view TECHNIQUE: AP portable upright chest single view Exam date and time: September 12, 2024 2037 hours Comparison September 12, 2024 1304 hours INDICATIONS: Sepsis alert FINDINGS: Normal heart size Lungs are clear. The osseous structures are intact IMPRESSION: No active disease
[2024-09-12 21:06] LABS: Basophils % (Auto) 0 % (0-2.5); Eosinophils % (Auto) 0 % (0-10); Hematocrit 34.2 % (36.0-46.0); Hemoglobin 11.6 g/dL (12.0-16.0); Immature Granulocytes % (Auto) 1 % (0-0); Immature Granulocytes Auto 0.16 Thou/mm3 (0.00-0.00); Lymphocytes # (Auto) 0.4 Thou/mm3 (1.0-4.8); Lymphocytes % (Auto) 2 % (10-50); Mean Corpuscular HGB Conc 33.9 g/dl (31.0-37.0); Mean Corpuscular Volume 88 fL (80-100); Monocytes # (Auto) 0.2 Thou/mm3 (0.0-0.8); Monocytes % (Auto) 1 % (0-12); Neutrophils # (Auto) 18.9 Thou/mm3 (1.8-7.7); Neutrophils % (Auto) 96 % (37-80); Nucleated Red Blood Cell % 0 /100 WBC (0); Platelet Count 204 Thou/mm3 (140-440); Red Blood Count 3.87 Miln/mm3 (4.00-5.20); White Blood Count 19.6 Thou/mm3 (3.6-11.0)
[2024-09-12 21:11] LABS: Lactate (Lactic Acid) 4.5 mMol/L (0.4-2.0)
[2024-09-12] MEDS: SODIUM CHLORIDE 0.9% 1000 ML 1,000 ML 999 ML IV ×2 (21:13→22:21)
[2024-09-12] MEDS: KETOROLAC INJ 30 MG/ML VIAL IVP (21:14)
[2024-09-12] MEDS: SODIUM CHLORIDE 0.9% 1000 ML 1,365 ML 1365 ML IV (21:14)
[2024-09-12 21:34] LABS: Alanine Aminotransferase 12 U/L (10-49); Albumin, Serum 3.9 gm/dL (3.5-5.0); Albumin/Globulin Ratio 1.4 (1.2-2.2); Alkaline Phosphatase 98 U/L (46-116); Anion Gap 13 (7-16); Aspartate Amino Transferase < 10 U/L (0-34); BUN/Creatinine Ratio 13 Ratio (12-20); Blood Urea Nitrogen 13 mg/dL (9-23); Calcium (Corrected) 9.1 mg/dL (8.5-10.1); Carbon Dioxide 19.2 mMol/L (20.0-31.0); Chloride 104 mMol/L (98-107); Estimated Creatinine Clearance 69.4 mL/min (>60); Globulin 2.8 gm/dL (2.3-3.5); Glucose 178 mg/dL (74-106); LDH (Lactate Dehydrogenase) 177 U/L (120-246); Lipase 27 U/L (12-53); Magnesium 1.4 mg/dL (1.6-2.6); Osmolality,Calculated 276 (275-295); Phosphorous 1.4 mg/dL (2.4-5.1); Potassium 3.5 mMol/L (3.4-5.1); Procalcitonin 3.75 ng/ml (0.0-0.49); Sodium 136 mMol/L (136-145); Total Protein 6.7 gm/dL (5.7-8.2); Troponin I < 0.002 ng/mL (0.0-0.045); eGFR > 60 See Note
[2024-09-12] MEDS: Magnesium Sulfate 2 GM Ivpb 2 GM/50 ML BAG IV (22:21)
[2024-09-12] MEDS: PIPER/TAZO INJ 3.375 GM in SODIUM CHLORIDE 0.9% (P) 50 ML IV (22:21)
[2024-09-12] MEDS: DOXYCYCLINE INJ 200 MG in SODIUM CHLORIDE 0.9% 250 ML 250 ML 125 MG IV (22:58)
--- NOTE | 2024-09-12 23:31 | PD.RESHP ---
Documentation for date of: 09/12/24 HPI History of Present Illness Chief complaint: Fever and abdominal pain History of present illness: A 33-year-old female with past medical history of diabetes mellitus on metformin presented to the hospital with chief complaints of fever and abdominal pain since 2 days. Patient was apparently normal 2 days back, since then had fever associated with chills and rigors, relieved with Tylenol. Endorsed that she is having right-sided back pain which is radiating to right groin. Also complained of burning micturition without any reddish or whitish discoloration of urine. Reported vomitings, 2 episodes on the day of admission. Patient endorsed that she came to the ED on the day of admission and she was discharged to home with antibiotics and pain medication. 15 minutes after taking antibiotics, patient noticed flushing and palpitations following which she immediately came to the ED. Patient had history of renal calculi in June 2024 with similar complaints for which patient went to ED in [place], but never followed a urologist ED Course: -Initial vitals were blood pressure 108/67 mmHg, pulse rate 156 bpm, respiratory rate 19/min, temperature 103.1 ?F, SpO2 95% with room air -Labs significant for WBC 19.6, Hb 11.6, bicarb 19.2, magnesium 1.4, phosphorus 1.4, procalcitonin 3.75 -Abdomen/pelvis CT showed mild right hydronephrosis. 9 mm lower pole right renal calculus. 14 mm calculus in right renal pelvis. Chest x-ray did not show any infiltrates. Gallbladder ultrasound showed normal gallbladder and common biliary duct with moderate hepatomegaly and no focal liver lesions. -In the ED, patient was given bolus of IV fluids, Zosyn and ketorolac -Patient was admitted for sepsis secondary to urinary tract infection with underlying renal calculi Dr. Palafox was consulted and recommended to admit the patient but no intervention is needed as of now Past medical history: Diabetes mellitus Past surgical history: Not significant Social history: Denies smoking, alcohol, other illicit drug abuse. Review of Systems Review of Systems Systems Reviewed: All systems reviewed, normal except as documented Exam Vital Signs Temp Pulse Resp BP Pulse Ox O2 Del Method 98.3 F 112 H 19 101/61 96 Room Air 09/12/24 22:14 09/12/24 23:00 09/12/24 23:00 09/12/24 23:00 09/12/24 23:00 09/12/24 23:00 Narrative Exam General: Awake. HEENT: Normocephalic, atraumatic, mucous membranes moist. Heart: Regular rate and rhythm, no murmurs. Lungs: Clear to auscultation with no wheezing or crackles. Abdomen: Soft, nondistended, nontender, positive bowel sounds. ?No guarding or rebound tenderness. Costovertebral tenderness noted on right side. Discharge Neurologic: Alert and oriented x3, no gross neurological deficit, and patient able to move all 4 extremities. Extremities: No edema. Skin: No rash or ecchymoses. Results: Labs 09/13/24 05:53 09/13/24 05:53 Labs: Short CBC 09/12/24 Range/Units 20:54 WBC 19.6 H (3.6-11.0) Thou/mm3 Hgb 11.6 L D (12.0-16.0) g/dL Hct 34.2 L (36.0-46.0) % Plt Count 204 D (140-440) Thou/mm3 BMP 09/12/24 20:54 Sodium 136 Potassium 3.5 Chloride 104 Carbon Dioxide 19.2 L BUN 13 Creatinine 1.0 Glucose 178 H Calcium 9.0 Cardiac Enzymes 09/12/24 Range/Units 20:54 Troponin I < 0.002 (0.0-0.045) ng/mL Liver Function 09/12/24 Range/Units 20:54 Total Bilirubin 1.0 (0.3-1.2) mg/dL AST < 10 (0-34) U/L ALT 12 (10-49) U/L Alkaline Phosphatase 98 (46-116) U/L Albumin 3.9 D (3.5-5.0) gm/dL Quality Measures Quality Measures sepsis Current suspected stage: sepsis Possible source: unknown Blood cultures ordered: completed in ED Antibiotic ordered: Yes Medications Home Medications and Allergies Home Medications ?Medication ?Instructions ?Recorded ?Confirmed ?Type ferrous sulfate 325 mg (65 mg 325 mg PO QDAY 02/12/20 02/12/20 History iron) tablet (iron) folic acid 1 mg tablet 1 mg PO QDAY 02/12/20 02/12/20 History vit no.95-ferrous 1 tab PO QDAY 02/12/20 02/12/20 History fumarate 28 mg-folic acid 800 mcg tablet () metformin 500 mg tablet 500 mg PO BID 09/13/24 09/13/24 History Allergies Allergy/AdvReac Type Severity Reaction Status Date / Time No Known Allergies Allergy Verified 02/12/20 11:50 Visit Medications Acetaminophen (Acetaminophen 325 Mg Tablet) 650 mg PO Q6H PRN PRN Reason: Fever >101.5 Stop: 10/12/24 23:26 Enoxaparin Sodium (Enoxaparin Sod Inj 40 Mg/0.4 Ml Syringe) 40 mg SC QDAY BOGDAN Stop: 09/27/24 08:59 Magnesium Sulfate (Magnesium Sulfate Ivpb) 2 gm in 50 mls @ 25 mls/hr IV X1 ONE Stop: 09/12/24 23:59 Last Admin: 09/12/24 22:21 Dose: 25 mls/hr Doxycycline Hyclate 200 mg/ (Sodium Chloride) 250 mls @ 125 mls/hr IV X1 ONE Stop: 09/13/24 00:03 Last Admin: 09/12/24 22:58 Dose: 125 mls/hr Magnesium Hydroxide (Milk Of Magnesia Susp 30 Ml Udc) 30 ml PO QDAY PRN; Protocol PRN Reason: CONSTIPATION Stop: 10/12/24 23:26 Ondansetron HCl (Ondansetron Inj 2 Mg/Ml Inj 2 Ml) 4 mg IV Q6H PRN; Protocol PRN Reason: NAUSEA OR VOMITING Stop: 10/12/24 23:26 Discontinued Medications Sodium Chloride (Ns) 1,365 mls @ 1,365 mls/hr 30 ml/kg infuse over 60 min (1365 ml) IV .Q1H ONE Stop: 09/12/24 21:29 Last Infusion: 09/12/24 22:14 Dose: Infused Sodium Chloride (Ns) 1,000 mls @ 999 mls/hr IV .Q1H1M ONE Stop: 09/12/24 21:37 Last Infusion: 09/12/24 22:14 Dose: Infused Sodium Chloride (Ns) 1,000 mls @ 999 mls/hr IV .Q1H1M ONE Stop: 09/12/24 23:00 Last Infusion: 09/12/24 23:22 Dose: Infused Piperacillin Sod/Tazobactam (Sod 3.375 gm/ Sodium Chloride) 50 mls @ 100 mls/hr IV X1 ONE Stop: 09/12/24 22:33 Last Infusion: 09/12/24 22:51 Dose: Infused Ketorolac Tromethamine (Ketorolac Inj 30 Mg/Ml Vial) 30 mg IVP X1 ONE Stop: 09/12/24 20:31 Last Admin: 09/12/24 21:14 Dose: 30 mg Assessment & Plan Plan A 33-year-old female with past medical history of diabetes mellitus on metformin presented to the hospital with chief complaints of fever and abdominal pain since 2 days and admitted for complicated UTI secondary to renal calculi # Acute complicated UTI # Renal calculi # Underlying diabetes mellitus -Patient was diagnosed with renal calculi in June 2024 when she went to ED in [place] with similar complaints -Presented to the hospital with complaints of fever, burning micturition and right loin pain radiating to the groin -Was discharged to home on the day of admission with antibiotics, but as her symptoms worsen patient came back to hospital -Vitals at the time of admission showed temperature 103.1 ?F, pulse rate 156 bpm -Labs at the time of admission showed WBC 19.6, Hb 11.6, procalcitonin is 3.75 -Urine analysis on the day of admission showed 1+ proteinuria, 1+ blood, 16 RBC, 169 WBC, rare urinary bacteria. -Abdomen/pelvis CT showed mild right hydronephrosis. 9 mm lower pole right renal calculus. 14 mm calculus in right renal pelvis. . -In the ED, patient was given bolus of IV fluids, Zosyn and ketorolac Plan -Started on IV fluids, LR at 75 mL/h -Started on Zosyn [09/13- -Consulted Dr. Leach, recommended no active intervention as of now -Started on phenazopyridine -Encouraged to take plenty of water -Tramadol and ketorolac as needed for pain # History of diabetes mellitus -Patient is using metformin 500 Mg p.o. twice daily at home -HbA1c is ordered -Started on insulin sliding scale # Hypomagnesemia # Hypophosphatemia -At the time of admission, magnesium is 1.4, phosphorous is 1.4 -Likely due to vomitings and decreased oral intake -Received 2 g of magnesium in the ED and started on Neutra-Phos -Monitor electrolytes and replete accordingly. Hospital Maintenance: Dispo: Telemetry DVT ppx: Enoxaparin GI ppx: Not needed Diet: Low carb consistent IV lines: Peripheral Code status: Full Patient plan of care was discussed with the attending physician, Dr. Olivia Galeas, PGY1 Attending Provider Attestation/Addendum I attest that I was physically present for the evaluation, physical examination, lab and imaging review of the patient with the residents. I discussed the case with the residents and agree with the findings and plans of care as documented above. Patient is a 33 years old female with past medical history of diabetes mellitus who presented to the ED with complaint of abdominal pain for 2 days. On her initial ED visit, patient was found to have a UTI along with renal calculi. She was discharged from the ED on oral antibiotics. At home, patient started having episodes of flushing, fever and thought she might be having reaction from her antibiotic and decided to the visit the ED again. In the ED, she was tachycardic, had a temperature of 103.1 ?F. Her WBC count was 19.6, procalcitonin 3.75. CT abdomen/pelvis done earlier shows 9 mm lower pole right renal calculus, 14 mm calculus in right renal pelvis and mild right hydronephrosis. Sepsis alert was called in the ED, patient received IV fluids, Zosyn and ketorolac for pain. Reached out to Dr. Palafox, who recommended no surgical intervention for now and admission of the patient for management of complicated UTI with IV antibiotics. We will admit the patient, started on IV Zosyn. We will also start her on gentle IV hydration and encourage her to drink plenty of fluid. IV analgesics along with tramadol for pain control. Patient noted to have low magnesium and phosphorus, repleted accordingly. Also started on insulin sliding scale for her diabetes. Adrián Baker MD
[2024-09-12 23:59] LABS: Reflex Lactate? Y
[2024-09-13] VITALS (14 sets, daily range): BP systolic 84–104; BP diastolic 56–68; PULSE 91–160; RESP 16–98; TEMP 36.4–39.4; O2SAT 95–99; BMI 35.7
[2024-09-13 00:15] LABS: Lactic Acid, 3 HR 1.1 mMol/L (0.4-2.0)
[2024-09-13] MEDS: RINGERS LACTATED 1000 ML 1,000 ML 100 ML IV (00:25)
[2024-09-13] MEDS: NAPH,KPH MBDB 1 PACKET (1.5 GM) PO (01:58)
[2024-09-13] MEDS: PIPER/TAZO 3.375 GM 3.375 GM/50 ML BAG IV ×3 (05:13→21:24)
[2024-09-13] MEDS: SENNA TABLET 1 TAB PO (05:32)
[2024-09-13 06:28] LABS: Basophils # (Auto) 0.1 Thou/mm3 (0.0-0.2); Basophils % (Auto) 0 % (0-2.5); Eosinophils % (Auto) 0 % (0-10); Hematocrit 31.2 % (36.0-46.0); Hemoglobin 10.2 g/dL (12.0-16.0); Immature Granulocytes % (Auto) 2 % (0-0); Immature Granulocytes Auto 0.44 Thou/mm3 (0.00-0.00); Lymphocytes # (Auto) 0.8 Thou/mm3 (1.0-4.8); Lymphocytes % (Auto) 3 % (10-50); Mean Corpuscular HGB Conc 32.7 g/dl (31.0-37.0); Mean Corpuscular Hemoglobin 30.3 pg (25.0-35.0); Mean Corpuscular Volume 93 fL (80-100); Monocytes # (Auto) 0.6 Thou/mm3 (0.0-0.8); Monocytes % (Auto) 3 % (0-12); Neutrophils # (Auto) 21.3 Thou/mm3 (1.8-7.7); Neutrophils % (Auto) 92 % (37-80); Nucleated Red Blood Cell % 0 /100 WBC (0); Platelet Count 175 Thou/mm3 (140-440); RDW Standard Deviation 44.6 fL (36.4-46.3); Red Blood Count 3.37 Miln/mm3 (4.00-5.20); White Blood Count 23.3 Thou/mm3 (3.6-11.0)
[2024-09-13 06:53] LABS: Anion Gap 9 (7-16); BUN/Creatinine Ratio 11 Ratio (12-20); Blood Urea Nitrogen 9 mg/dL (9-23); Calcium 8.3 mg/dL (8.3-10.6); Carbon Dioxide 22.1 mMol/L (20.0-31.0); Chloride 112 mMol/L (98-107); Creatinine (Component) 0.8 mg/dL (0.6-1.3); Estimated Creatinine Clearance 93.7 mL/min (>60); Glucose 138 mg/dL (74-106); Osmolality,Calculated 285 (275-295); Potassium 4.1 mMol/L (3.4-5.1); Sodium 143 mMol/L (136-145); Thyroid Stimulating Hormone 1.35 uIU/mL (0.55-4.78); eGFR > 60 See Note
[2024-09-13 06:57] LABS: Glucose Estimated Average 128 mg/dL (80-131); Hemoglobin A1C 6.1 % Hgb (4.8-6.0)
--- NOTE | 2024-09-13 07:23 | PC.NURSE ---
arrived to pt room to find pt complaining of SOB, heart rate in the 160's, rapid response called at this time.
--- NOTE | 2024-09-13 07:26 | EKG_ITS ---
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
[2024-09-13] MEDS: ONDANSETRON INJ 2 MG/ML INJ 2 ML 4 MG IV (07:35)
[2024-09-13] MEDS: MORPHINE SULF INJ 10 MG/ML VIAL 2 MG IVP (07:36)
[2024-09-13] MEDS: ACETAMINOPHEN 500 MG TABLET 1000 MG PO (07:36)
--- NOTE | 2024-09-13 08:08 | EKG_ITS ---
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
[2024-09-13 08:20] LABS: Magnesium 2.2 mg/dL (1.6-2.6)
[2024-09-13] MEDS: ENOXAPARIN SOD INJ 40 MG/0.4 ML SYRINGE SC (08:37)
[2024-09-13] MEDS: PHENAZOPYRIDINE HCL 100 MG TABLET PO ×3 (08:37→17:16)
[2024-09-13 08:52] LABS: Phosphorous 2.7 mg/dL (2.4-5.1)
[2024-09-13] MEDS: Magnesium Sulfate 2 GM Ivpb 2 GM/50 ML BAG IV (10:27)
[2024-09-13] MEDS: SODIUM CHLORIDE 0.9% 1000 ML 1,000 ML 125 ML IV (12:12)
[2024-09-13] MEDS: RINGERS LACTATED 1000 ML 1,000 ML 999 ML IV (12:36)
--- NOTE | 2024-09-13 14:33 | EVENTNT_ITS ---
<Statement entered by Ange Liang MD - 09/19/24 15:56> I reviewed above note and agree with findings and plans. I have also personally examined the patient with medicine team and went over assessment and plan with medical team including network internship and resident physician. Documentation for date of: 09/13/24 Event Note Event Note: A rapid response was called at about 7:30 AM. On getting to the patient's bedside, she states her been complaining of severe pain in her abdomen and flank areas, patient was also in respiratory distress, tachypneic although saturating 98% on room air. Vitals: Temperature of 130.3, pulse rate of 157, blood pressure 130/72. On examination, patient was warm to touch and extremely tender in the abdomen and flank region. Otherwise, examination was normal. She received IV morphine 2 mg, Zofran, Tylenol 1g. An EKG was done which shows sinus tachycardia. Lactate was ordered which was normal at 1.1 Shortly after, patient was seen to be improving. Will continue to give patient IV fluids per sepsis protocol and manage pain as well as IV Zosyn. Pending blood and urine cultures. Case was discussed with attending physician, Dr Garth Sellers MD PGY-1
--- NOTE | 2024-09-13 14:39 | ESPR_ITS ---
<Statement entered by Ange Liang MD - 09/19/24 15:56> I reviewed above note and agree with findings and plans. I have also personally examined the patient with medicine team and went over assessment and plan with medical team including phd internship and resident physician. Documentation for date of: 09/13/24 Subjective Subjective Interval history: Patient seen at bedside. She is sitting comfortably in bed and was able to have breakfast after the rapid response was called. She still does complain of some pain but otherwise has shown some improvement. A repeat EKG was done as the initial one done during the rapid had many artifacts sinus tachycardia. Will continue to manage patient for sepsis with IV fluids and antibiotics. Blood pressure was a little soft, fluid rate was increased to 150 cc/h. Labs today, WBC uptrending to 23.3 Exam Vital Signs Temp Pulse Resp BP Pulse Ox O2 Del Method 98.1 F 105 H 19 84/58 L 98 Room Air 09/13/24 13:52 09/13/24 13:52 09/13/24 13:52 09/13/24 13:52 09/13/24 13:52 09/13/24 13:52 Narrative Exam General: AAOX3 HEENT: Normocephalic, atraumatic, mucous membranes moist. Heart: Regular rate and rhythm, no murmurs. Lungs: Clear to auscultation with no wheezing or crackles. Abdomen: Soft, nondistended,mildly tender in right lumbar. positive bowel sounds. ?No guarding or rebound tenderness. Costovertebral tenderness noted on right side, slightly improved Neurologic: Alert and oriented x3, no gross neurological deficit, and patient able to move all 4 extremities. Extremities: No edema. Skin: No rash or ecchymoses. Objective Labs 09/14/24 04:13 09/14/24 04:13 Labs: Laboratory Results - last 24 hr 09/12/24 09/13/24 09/13/24 20:54 00:09 05:53 WBC 19.6 H 23.3 H RBC 3.87 L 3.37 L Hgb 11.6 L D 10.2 L Hct 34.2 L 31.2 L MCV 88 93 MCH 30.0 30.3 MCHC 33.9 32.7 RDW Std Deviation 42.0 44.6 Plt Count 204 D 175 Neut % (Auto) 96 H 92 H Lymph % (Auto) 2 L 3 L [place] % (Auto) 1 3 Eos % (Auto) 0 0 Baso % (Auto) 0 0 Neut # (Auto) 18.9 H 21.3 H Lymph # (Auto) 0.4 L 0.8 L [place] # (Auto) 0.2 0.6 Eos # (Auto) 0.0 0.0 Baso # (Auto) 0.0 0.1 Immature Gran # (Auto) 0.16 H 0.44 H Absolute Nucleated RBC 0.00 0.00 Immature Gran % 1 H 2 H Nucleated RBC % 0 0 Sodium 136 143 Potassium 3.5 4.1 D Chloride 104 112 H Carbon Dioxide 19.2 L 22.1 Anion Gap 13 9 BUN 13 9 Creatinine 1.0 0.8 Estim Creat Clear Calc 69.4 93.7 eGFR > 60 > 60 BUN/Creatinine Ratio 13 11 L Glucose [address] Glu mg/dL 128 Hemoglobin A1c 6.1 H Calculated Osmolality 276 285 Lactic Acid 4.5 H* 1.1 Calcium 9.0 8.3 Corrected Calcium 9.1 Phosphorus 1.4 L 2.7 Magnesium 1.4 L 2.2 Total Bilirubin 1.0 AST < 10 ALT 12 Alkaline Phosphatase 98 Lactate Dehydrogenase 177 Troponin I < 0.002 Total Protein 6.7 Albumin 3.9 D Globulin 2.8 Albumin/Globulin Ratio 1.4 Lipase 27 Procalcitonin 3.75 H TSH 1.35 Quality Measures Quality Measures sepsis Current suspected stage: sepsis Possible source: unknown Blood cultures ordered: completed in ED Antibiotic ordered: Yes Assessment & Plan Assessment Current Active Medications: Generic Name Dose Route Start Last Admin Trade Name Freq PRN Reason Stop Dose Admin Acetaminophen 650 mg 09/13/24 12:49 Acetaminophen 325 Mg Tablet PO 10/12/24 23:26 Q6H PRN Fever >100.3 Celecoxib 100 mg 09/13/24 07:48 Celecoxib 100 Mg Capsule PO 10/13/24 08:59 BID PRN PAIN 1-6 (mild-mod Dextrose 25 ml 09/13/24 03:13 Dextrose 50%-Water Inj 50 Ml Syringe IV 10/13/24 03:12 Q15MIN PRN BG 50-70 responsive npo pt Dextrose 50 ml 09/13/24 03:13 Dextrose 50%-Water Inj 50 Ml Syringe IV 10/13/24 03:12 Q15MIN PRN BG <50 OR BG <70 & pt unresponsive Enoxaparin Sodium 40 mg 09/13/24 09:00 09/13/24 08:37 Enoxaparin Sod Inj 40 Mg/0.4 Ml Syringe SC 09/27/24 08:59 40 mg QDAY BOGDAN Administration Glucagon 1 mg 09/13/24 03:13 Glucagon Inj 1 Mg Vial IM Q15MIN PRN BG <70, and no IV access Piperacillin/Tazobactam/Dextrose 3.375 gm in 50 mls @ 12.5 mls/hr 09/13/24 06:00 09/13/24 13:45 Zosyn IV 09/20/24 05:59 12.5 mls/hr Q8HR BOGDNA Administration Sodium Chloride 1,000 mls @ 150 mls/hr 09/13/24 12:25 09/13/24 12:37 Ns IV 09/14/24 15:04 Not Given .Q6H40M BOGDAN Insulin Human Lispro 0 unit 09/13/24 07:30 09/13/24 12:01 Insulin Lispro (Admelog) 1 Unit/0.01 Ml Unit SC 10/13/24 07:29 Not Given ACHS BOGDAN Protocol Magnesium Hydroxide 30 ml 09/12/24 23:27 Milk Of Magnesia Susp 30 Ml Udc PO 10/12/24 23:26 QDAY PRN CONSTIPATION Protocol Ondansetron HCl 4 mg 09/12/24 23:27 09/13/24 07:35 Ondansetron Inj 2 Mg/Ml Inj 2 Ml IV 10/12/24 23:26 4 mg Q6H PRN Administration NAUSEA OR VOMITING Protocol Phenazopyridine HCl 100 mg 09/13/24 08:00 09/13/24 12:12 Phenazopyridine Hcl 100 Mg Tablet PO 09/14/24 17:31 100 mg TIDWM BOGDAN Administration Sennosides 1 tab 09/13/24 05:22 09/13/24 05:32 Senna Tablet PO 10/13/24 05:21 1 tab QDAY PRN Administration CONSTIPATION Protocol Tramadol HCl 50 mg 09/13/24 00:08 Tramadol Hcl 50 Mg Tablet PO 09/18/24 00:07 Q6HR PRN Pain 7-10 Plan Summary: The patient is a 33-year-old female with past medical history of diabetes mellitus on metformin presented to the hospital with chief complaints of fever and abdominal pain since 2 days and admitted for complicated UTI secondary to renal calculi #Sepsis secondary to UTI # Urolithiasis -Patient was diagnosed with renal calculi in June 2024 when she went to ED in [place] with similar complaints -Presented to the hospital with complaints of fever, burning micturition and right loin pain radiating to the groin -Was discharged to home on the day of admission with antibiotics, but as her symptoms worsen patient came back to hospital -Vitals at the time of admission showed temperature 103.1 ?F, pulse rate 156 bpm -Labs at the time of admission showed WBC 19.6, Hb 11.6, procalcitonin is 3.75 -Urine analysis on the day of admission showed 1+ proteinuria, 1+ blood, 16 RBC, 169 WBC, rare urinary bacteria. -Abdomen/pelvis CT showed mild right hydronephrosis. 9 mm lower pole right renal calculus. 14 mm calculus in right renal pelvis. Urologist Dr. Palafox was consulted, recommended no surgical intervention now, continue medical management. -In the ED, patient was given bolus of IV fluids, Zosyn and ketorolac Plan -Continue IV fluids increased to 150 cc/h -Continue IV Zosyn -Celebrex, tramadol and ketorolac as needed for pain -Pending blood and urine cultures # History of diabetes mellitus -Patient is using metformin 500 Mg p.o. twice daily at home. A1c- 6.1 Plan: -ISS -Hypoglycemic protocols in place -Blood glucose check AC # Hypomagnesemia-resolved # Hypophosphatemia-resolved -At the time of admission, magnesium is 1.4, phosphorous is 1.4 -Likely due to vomitings and decreased oral intake -Received 2 g of magnesium in the ED and started on Neutra-Phos Plan: -Resolved, continue to monitor electrolytes and replete accordingly. Hospital Maintenance: Dispo: Telemetry DVT ppx: Enoxaparin Diet: Low carb consistent IV lines: Peripheral Code status: Full Case was discussed with attending physician, Dr Garth Sellers MD PGY-1
[2024-09-13] MEDS: CELECOXIB 100 MG CAPSULE PO (16:06)
[2024-09-13] MEDS: traMADol HCL 50 MG TABLET PO (19:15)
[2024-09-13] MEDS: SODIUM CHLORIDE 0.9% 1000 ML 1,000 ML 150 ML IV (19:15)
[2024-09-13] MEDS: ACETAMINOPHEN 325 MG TABLET 650 MG PO (23:32)
[2024-09-13] MEDS: SODIUM CHLORIDE 0.9% 500 ML 500 ML 999 ML IV (23:49)
--- NOTE | 2024-09-13 23:58 | PC.NURSE ---
2345 Dr. Castillo aware of pt low bp 87/62 new orders for NS 500 bolus. Pt has no c/o pain or discomfort resp even and unlabored 0 sob. 0004 BP after bolus 91/56 with HR of 79 [id number] 95% on RA.
[2024-09-14] VITALS (12 sets, daily range): BP systolic 87–118; BP diastolic 55–78; PULSE 59–113; RESP 16–97; TEMP 36.3–39.1; O2SAT 96–100
[2024-09-14] MEDS: PIPER/TAZO 3.375 GM 3.375 GM/50 ML BAG IV (05:32)
[2024-09-14] MEDS: SODIUM CHLORIDE 0.9% 1000 ML 1,000 ML 150 ML IV ×2 (05:32→12:22)
[2024-09-14 06:07] LABS: Basophils % (Auto) 0 % (0-2.5); Eosinophils # (Auto) 0.1 Thou/mm3 (0.0-0.5); Eosinophils % (Auto) 1 % (0-10); Hematocrit 27.9 % (36.0-46.0); Immature Granulocytes % (Auto) 2 % (0-0); Immature Granulocytes Auto 0.46 Thou/mm3 (0.00-0.00); Lymphocytes # (Auto) 1.1 Thou/mm3 (1.0-4.8); Lymphocytes % (Auto) 6 % (10-50); Mean Corpuscular HGB Conc 32.3 g/dl (31.0-37.0); Mean Corpuscular Hemoglobin 29.9 pg (25.0-35.0); Mean Corpuscular Volume 93 fL (80-100); Monocytes # (Auto) 0.7 Thou/mm3 (0.0-0.8); Monocytes % (Auto) 4 % (0-12); Neutrophils # (Auto) 16.6 Thou/mm3 (1.8-7.7); Neutrophils % (Auto) 88 % (37-80); Nucleated Red Blood Cell % 0 /100 WBC (0); Platelet Count 130 Thou/mm3 (140-440); RDW Standard Deviation 46.3 fL (36.4-46.3); Red Blood Count 3.01 Miln/mm3 (4.00-5.20)
[2024-09-14 06:30] LABS: Anion Gap 9 (7-16); BUN/Creatinine Ratio 11 Ratio (12-20); Blood Urea Nitrogen 8 mg/dL (9-23); Carbon Dioxide 22.7 mMol/L (20.0-31.0); Chloride 112 mMol/L (98-107); Creatinine (Component) 0.7 mg/dL (0.6-1.3); Estimated Creatinine Clearance 104.1 mL/min (>60); Glucose 111 mg/dL (74-106); Osmolality,Calculated 286 (275-295); Potassium 3.8 mMol/L (3.4-5.1); Sodium 144 mMol/L (136-145); eGFR > 60 See Note
[2024-09-14] MEDS: ENOXAPARIN SOD INJ 40 MG/0.4 ML SYRINGE SC (09:03)
[2024-09-14] MEDS: PHENAZOPYRIDINE HCL 100 MG TABLET PO ×3 (09:03→19:03)
--- NOTE | 2024-09-14 11:00 | ESPR_ITS ---
<Statement entered by Ange Liang MD - 09/19/24 15:58> I reviewed above note and agree with findings and plans. I have also personally examined the patient with medicine team and went over assessment and plan with medical team including marketing operations intern and resident physician. Documentation for date of: 09/14/24 Subjective Subjective Interval history: Patient seen at bedside. Overnight, blood pressure was on the soft side and received 500 cc bolus of normal saline. Today, she complains of mild pain, no nausea and is generally improved. She is also remained fever free in the last 24 hours. Blood pressure improving, currently 104/66. Labs reviewed downtrending leukocytosis. Urine culture returned with mixed dorian and blood cultures positive for gram- negative rods. Pending final read of blood culture, will switch antibiotics from IV Zosyn to Rocephin 2 g daily, continue on IV fluids and if she remains fever free within 24 hours, consider discharge. Exam Vital Signs Temp Pulse Resp BP Pulse Ox O2 Del Method 97.8 F 94 22 H 104/66 99 Room Air 09/14/24 08:00 09/14/24 08:00 09/14/24 08:00 09/14/24 08:00 09/14/24 08:00 09/14/24 08:00 Narrative Exam General: AAOX3 HEENT: Normocephalic, atraumatic, mucous membranes moist. Heart: Regular rate and rhythm, no murmurs. Lungs: Clear to auscultation with no wheezing or crackles. Abdomen: Soft, nondistended, not tender to palpation.?No guarding or rebound tenderness. Costovertebral tenderness noted on right side, improved Neurologic: Alert and oriented x3, no gross neurological deficit, and patient able to move all 4 extremities. Extremities: No edema. Skin: No rash or ecchymoses. Objective Labs 09/14/24 04:13 09/14/24 04:13 Labs: Laboratory Results - last 24 hr 09/14/24 04:13 WBC 19.0 H RBC 3.01 L Hgb 9.0 L Hct 27.9 L MCV 93 MCH 29.9 MCHC 32.3 RDW Std Deviation 46.3 Plt Count 130 L D Neut % (Auto) 88 H Lymph % (Auto) 6 L [place] % (Auto) 4 Eos % (Auto) 1 Baso % (Auto) 0 Neut # (Auto) 16.6 H Lymph # (Auto) 1.1 [place] # (Auto) 0.7 Eos # (Auto) 0.1 Baso # (Auto) 0.0 Immature Gran # (Auto) 0.46 H Absolute Nucleated RBC 0.00 Immature Gran % 2 H Nucleated RBC % 0 Sodium 144 Potassium 3.8 Chloride 112 H Carbon Dioxide 22.7 Anion Gap 9 BUN 8 L Creatinine 0.7 Estim Creat Clear Calc 104.1 eGFR > 60 BUN/Creatinine Ratio 11 L Glucose 111 H Calculated Osmolality 286 Calcium 8.0 L Quality Measures Quality Measures sepsis Current suspected stage: ruled out Possible source: unknown Blood cultures ordered: completed in ED Antibiotic ordered: Yes Assessment & Plan Assessment Current Active Medications: Generic Name Dose Route Start Last Admin Trade Name Freq PRN Reason Stop Dose Admin Acetaminophen 650 mg 09/13/24 12:49 09/13/24 23:32 Acetaminophen 325 Mg Tablet PO 10/12/24 23:26 650 mg Q6H PRN Administration Fever >100.3 Celecoxib 100 mg 09/13/24 07:48 09/13/24 16:06 Celecoxib 100 Mg Capsule PO 10/13/24 08:59 100 mg BID PRN Administration PAIN 1-6 (mild-mod Dextrose 25 ml 09/13/24 03:13 Dextrose 50%-Water Inj 50 Ml Syringe IV 10/13/24 03:12 Q15MIN PRN BG 50-70 responsive npo pt Dextrose 50 ml 09/13/24 03:13 Dextrose 50%-Water Inj 50 Ml Syringe IV 10/13/24 03:12 Q15MIN PRN BG <50 OR BG <70 & pt unresponsive Enoxaparin Sodium 40 mg 09/13/24 09:00 09/14/24 09:03 Enoxaparin Sod Inj 40 Mg/0.4 Ml Syringe SC 09/27/24 08:59 40 mg QDAY BOGDAN Administration Glucagon 1 mg 09/13/24 03:13 Glucagon Inj 1 Mg Vial IM Q15MIN PRN BG <70, and no IV access Sodium Chloride 1,000 mls @ 150 mls/hr 09/13/24 12:25 09/14/24 05:32 Ns IV 09/14/24 15:04 150 mls/hr .Q6H40M BOGDAN Administration Ceftriaxone Sodium/Dextrose 2 gm in 50 mls @ 100 mls/hr 09/14/24 10:00 Rocephin/D5w 2gm IV 09/21/24 09:59 QDAY BOGDAN Insulin Human Lispro 0 unit 09/13/24 17:00 09/14/24 07:44 Insulin Lispro (Admelog) 1 Unit/0.01 Ml Unit SC 10/13/24 16:59 Not Given AC BOGDAN Protocol Magnesium Hydroxide 30 ml 09/12/24 23:27 Milk Of Magnesia Susp 30 Ml Udc PO 10/12/24 23:26 QDAY PRN CONSTIPATION Protocol Ondansetron HCl 4 mg 09/12/24 23:27 09/13/24 07:35 Ondansetron Inj 2 Mg/Ml Inj 2 Ml IV 10/12/24 23:26 4 mg Q6H PRN Administration NAUSEA OR VOMITING Protocol Phenazopyridine HCl 100 mg 09/13/24 08:00 09/14/24 09:03 Phenazopyridine Hcl 100 Mg Tablet PO 09/14/24 17:31 100 mg TIDWM BOGDAN Administration Sennosides 1 tab 09/13/24 05:22 09/13/24 05:32 Senna Tablet PO 10/13/24 05:21 1 tab QDAY PRN Administration CONSTIPATION Protocol Tramadol HCl 50 mg 09/13/24 00:08 09/13/24 19:15 Tramadol Hcl 50 Mg Tablet PO 09/18/24 00:07 50 mg Q6HR PRN Administration Pain 7-10 Plan Summary: The patient is a 33-year-old female with past medical history of diabetes mellitus on metformin presented to the hospital with chief complaints of fever and abdominal pain since 2 days and admitted for complicated UTI secondary to renal calculi #GNR Bacteremia # Urolithiasis -Patient was diagnosed with renal calculi in June 2024 when she went to ED in [place] with similar complaints -Presented to the hospital with complaints of fever, burning micturition and right loin pain radiating to the groin -Was discharged to home on the day of admission with antibiotics, but as her symptoms worsen patient came back to hospital -Vitals at the time of admission showed temperature 103.1 ?F, pulse rate 156 bpm -Labs at the time of admission showed WBC 19.6, Hb 11.6, procalcitonin is 3.75 -Urine analysis on the day of admission showed 1+ proteinuria, 1+ blood, 16 RBC, 169 WBC, rare urinary bacteria. -Abdomen/pelvis CT showed mild right hydronephrosis. 9 mm lower pole right renal calculus. 14 mm calculus in right renal pelvis. Urologist Dr. Palafox was consulted, recommended no surgical intervention now, continue medical management. -In the ED, patient was given bolus of IV fluids, Zosyn and ketorolac Patient came in and found to have 2 or more SIRS criteria and was evaluated for sepsis. However, based upon further work-up, sepsis was ruled out. 09/14/2024- Patient clinically has improved. Fever free in the last 24hrs and BP is improving, UCx- Mixed dorian, Blood culture- GNR bacteremia Plan -Continue IV fluids at 150 cc/h -DC IV Zosyn -IV Rocephin 2 g daily -Celebrex, tramadol and ketorolac as needed for pain # History of diabetes mellitus -Patient is using metformin 500 Mg p.o. twice daily at home. A1c- 6.1 Plan: -ISS -Hypoglycemic protocols in place -Blood glucose check AC # Hypomagnesemia-resolved # Hypophosphatemia-resolved -At the time of admission, magnesium was 1.4 and phosphorous -1.4 -Likely due to vomitings and decreased oral intake -Received 2 g of magnesium in the ED and started on Neutra-Phos Plan: -Resolved, continue to monitor electrolytes and replete accordingly. Hospital Maintenance: Dispo: Telemetry DVT ppx: Enoxaparin Diet: Low carb consistent IV lines: Peripheral Code status: Full Case was discussed with attending physician, Dr Garth Sellers MD PGY-1
[2024-09-14] MEDS: cefTRIAXone/D5w 2gm 2 GM/50 ML BAG IV (12:22)
[2024-09-14] MEDS: traMADol HCL 50 MG TABLET PO (12:23)
--- NOTE | 2024-09-14 13:31 | PC.SS ---
Margaret Acosta is 34-year-old female admitted to Med-Surg for SBO. SS conducted bedside contact with the patient to complete initial assessment and to discuss discharge planning.? Patient confirmed demographic information. Patient identifies her friend Sosa Dejesus [phone] as her surrogate decision maker. Patient resides at home with her partner and kids. Pt states she is able to complete all ADL?s independently, no need for any source of DME. Pts PCP is Dr. Fitch (last visit ?in June) and her pharmacy of choice is [facility] in [place]. DC options discussed, pt wishes to return home. Pts family will provide transportation upon DC. No further intervention required at this time, social work therapist would be available to address any further concerns. DC Plan: Home Contact: ?Sosa Dovea [phone] PCP: [facility]ine
[2024-09-14] MEDS: MORPHINE SULF INJ 10 MG/ML VIAL 2 MG IVP (14:12)
[2024-09-14] MEDS: ONDANSETRON INJ 2 MG/ML INJ 2 ML 4 MG IV (14:13)
[2024-09-14] MEDS: ACETAMINOPHEN 325 MG TABLET 650 MG PO (14:23)
[2024-09-14] MEDS: CELECOXIB 100 MG CAPSULE PO (15:40)
[2024-09-14] MEDS: MG HYD/AL HYD/SIME (Maalox Reg) SUSP 30 ML UDC PO (20:27)
[2024-09-15] VITALS (13 sets, daily range): BP systolic 101–141; BP diastolic 67–88; PULSE 73–140; RESP 17–97; TEMP 36.3–38.1; O2SAT 96–99; BMI 34.0
[2024-09-15] MEDS: MORPHINE SULF INJ 10 MG/ML VIAL 2 MG IVP (01:05)
[2024-09-15] MEDS: ACETAMINOPHEN 325 MG TABLET 650 MG PO (01:08)
--- NOTE | 2024-09-15 01:16 | PC.NURSE ---
Pt had episode of hr of 140 and increase respirations 30s temp of 98.6 orally. Pt reassured pain medication given. Dr. Lynn aware new orders see OCT.
[2024-09-15] MEDS: RINGERS LACTATED 500 ML 500 ML 999 ML IV (01:35)
[2024-09-15] MEDS: KETOROLAC INJ 30 MG/ML VIAL IVP (02:23)
[2024-09-15 06:18] LABS: Basophils % (Auto) 0 % (0-2.5); Eosinophils % (Auto) 0 % (0-10); Hematocrit 30.7 % (36.0-46.0); Hemoglobin 9.9 g/dL (12.0-16.0); Immature Granulocytes % (Auto) 1 % (0-0); Immature Granulocytes Auto 0.15 Thou/mm3 (0.00-0.00); Lymphocytes # (Auto) 0.7 Thou/mm3 (1.0-4.8); Lymphocytes % (Auto) 6 % (10-50); Mean Corpuscular HGB Conc 32.2 g/dl (31.0-37.0); Mean Corpuscular Hemoglobin 29.6 pg (25.0-35.0); Mean Corpuscular Volume 92 fL (80-100); Monocytes # (Auto) 0.6 Thou/mm3 (0.0-0.8); Monocytes % (Auto) 5 % (0-12); Neutrophils # (Auto) 10.4 Thou/mm3 (1.8-7.7); Neutrophils % (Auto) 88 % (37-80); Nucleated Red Blood Cell % 0 /100 WBC (0); Platelet Count 132 Thou/mm3 (140-440); RDW Standard Deviation 44.4 fL (36.4-46.3); Red Blood Count 3.35 Miln/mm3 (4.00-5.20); White Blood Count 11.8 Thou/mm3 (3.6-11.0)
[2024-09-15 06:44] LABS: Anion Gap 10 (7-16); BUN/Creatinine Ratio 9 Ratio (12-20); Blood Urea Nitrogen 6 mg/dL (9-23); Calcium 8.8 mg/dL (8.3-10.6); Carbon Dioxide 23.3 mMol/L (20.0-31.0); Chloride 110 mMol/L (98-107); Creatinine (Component) 0.7 mg/dL (0.6-1.3); Estimated Creatinine Clearance 104.1 mL/min (>60); Glucose 128 mg/dL (74-106); Osmolality,Calculated 284 (275-295); Potassium 3.3 mMol/L (3.4-5.1); Sodium 143 mMol/L (136-145); eGFR > 60 See Note
--- NOTE | 2024-09-15 09:52 | CHAP ---
Patient expressed gratitude for visit and prayer.
[2024-09-15] MEDS: PANTOPRAZOLE INJ 40 MG VIAL IVP (10:56)
[2024-09-15] MEDS: ENOXAPARIN SOD INJ 40 MG/0.4 ML SYRINGE SC (10:57)
[2024-09-15] MEDS: cefTRIAXone/D5w 2gm 2 GM/50 ML BAG IV (10:57)
--- NOTE | 2024-09-15 11:09 | ESDS_ITS ---
<Statement entered by Ange Liang MD - 09/19/24 16:21> I reviewed above note and agree with findings and plans. I have also personally examined the patient with medicine team and went over assessment and plan with medical team including creative services intern and resident physician. Planned Discharge Date 09/15/24 DS: Providers Provider Date of admission: 09/12/24 23:27 Primary care physician: Ottoniel Fitch MD Admitting Provider: Adrián Baker MD Attending Provider on Admission: Ange Liang MD Attending Provider on DC: David Mendieta MD Discharging Provider: Ange Liang MD DS: Diagnosis Problem List Completed Was Problem List Reviewed/Reconciled?: Yes Hospital Course Hospital Course Hospital course: 33 y/o with PMHx of non-insulin dependent diabetes mellitus who was admitted on 09/12/2024 to [facility] for GNR bacteremia and UTI secondary to urolithiasis. Pt came to the hospital for complaints of fever and abdominal pain with associated chills. On the day of admission she did state that she came to the ER earlier for further workup and was discharged on antibiotics, however came back to the ED after taking the antibiotic and felt symptoms of palpitations. She did says she had a history of renal stones in June 2024 in which she was treated in [place] but never followed up with her urologist. She came to the ER with a blood pressure of 108/67, pulse of 156, respiratory of 19, temperature of 103.1, saturating 95% room air. She worked up and was found to have a white count of 19.6, hemoglobin 11.6, bicarb of 19.2, magnesium of 1.4, phosphorus of 1.4, pro calcitonin of 3.7. She was imaged and was found to have right mild hydonephrosis, 9 mm lower pole right renal calculus, 14 mm calculus in the right renal pelvis. Chest x-ray is unremarkable in addition to gallbladder ultrasound. She was given fluids, Zosyn and Toradol was admitted for sepsis secondary to UTI and renal calculi. While she was in the hospital, Dr. Palafox was consulted and had recommended to admit patient but no surgical intervention and to treat with fluids and pain control. She was found to have GNR bacteremia which ended up being E. coli in which it was pansensitive. Patient came in and found to have 2 or more SIRS criteria and was evaluated for sepsis. However, based upon further work-up, sepsis was ruled out. She was then treated for pain and her infection. During her admission she did have a rapid response called on her in which she was tachypneic, temperature of 100.3, pulse rate of 157. She was given additional pain control and Zofran and EKG showed sinus tachycardia. She was also given additional fluids and which improved. With further improvement, patient was then discharged with recommendation to finish up antibiotic course completing 14 days, given a 11-day supply. Also recommended to follow-up with a urologist and to continue taking her medicines as prescribed. Take two capsules of cephalexin four times a day with food until antibiotic cour se is finished Take omeprazole 40 mg once a day until antibiotic course is finished Stop taking cefdinir as we are replacing this antibiotic Stop taking ketorolac due to worsening of gastritis symptoms We recommend taking celebrex over the counter if you need for pain, or tylenol # E. coli bacteremia # Urolithiasis # Complicated UTI # History of diabetes mellitus # Hypomagnesemia-resolved # Hypophosphatemia-resolved Patient seen and care discussed with my senior resident, Dr. Gerard, and my attending physician, Dr. Garth Mendieta, PGY-1 Time Spent with Patient Time attestation: Total time spent providing and/or coordinating discharge services: Time spent: Greater than 30 minutes Exam Vital Signs Temp Pulse Resp BP Pulse Ox O2 Del Method O2 Flow Rate 97.3 F 80 18 101/67 97 Room Air 5 09/15/24 08:00 09/15/24 08:00 09/15/24 08:00 09/15/24 08:00 09/15/24 08:00 09/15/24 08:00 09/15/24 01:27 Discharge Plan Plan Patient Disposition: HOME (Self Care) Prescriptions/Referrals Prescriptions/Med Rec: New cephalexin 500 mg capsule 1,000 mg PO Q6H 11 Days Qty: 88 0RF omeprazole 40 mg capsule,delayed release(DR/EC) 40 mg PO QDAY 11 Days Qty: 11 0RF Rx Instructions: Take one tablet every day until antibiotic course is finished acetaminophen 500 mg tablet 1,000 mg PO Q6H PRN (Reason: fever >99) 5 Days Qty: 20 0RF Continued ferrous sulfate [iron] 325 mg (65 mg iron) Tablet 325 mg PO QDAY folic acid 1 mg Tablet 1 mg PO QDAY acetaminophen-codeine 300-30 mg tablet 2 tab PO TID MDD 6 PRN (Reason: pain) Qty: 20 0RF ondansetron 4 mg tablet,disintegrating 4 mg PO TID PRN (Reason: nausea and vomiting) 5 Days Qty: 10 0RF metformin 500 mg tablet 500 mg PO BID Discontinued PNV cmb#95-ferrous fumarate-FA [] 28 mg iron- 800 mcg Tablet 1 tab PO QDAY ketorolac 10 mg tablet 10 mg PO Q8H PRN (Reason: pain) 5 Days Qty: 14 0RF cefdinir 300 mg capsule 300 mg PO BID Qty: 14 0RF Referrals: Ottoniel Fitch MD [Primary Care Provider] - Patient/Caregiver Discharge Instructions Other Discharge Activity Instructions:: Take two capsules of cephalexin four times a day with food until antibiotic course is finished Take omeprazole 40 mg once a day until antibiotic course is finished Stop taking cefdinir as we are replacing this antibiotic Stop taking ketorolac due to worsening of gastritis symptoms We recommend taking celebrex over the counter if you need for pain, or tylenol. [place] dos c?psulas de cefalexina cuatro veces al d?a con las comidas hasta finalizar el tratamiento con antibi?ticos. [place] omeprazol 40 mg jerrica vez al d?a hasta finalizar el tratamiento con antibi?ticos. Deje de doreen cefdinir ya que estamos reemplazando dai antibi?elizabeth. Deje de doreen ketorolaco debido al empeoramiento de los s?ntomas de la gastritis Recomendamos doreen celebrex sin receta si lo necesita para el dolor o tylenol. Other Discharge Diet Instructions: diet as preadmission Education Materials: Sepsis, Understanding Sepsis Print Language: Serbian Stand Alone Forms: Anabella Award Info., Patient Portal Info Letter Discharge Order Discharge Orders: Discharge (Routine); Ordered 09/15/24 Ordered By: Buck Song Quality Discharge Quality Measures VTE prophylaxis
[2024-09-15] MEDS: POTASSIUM CHLORIDE 20 mEq TABCR 40 MEQ PO (11:13)
[2024-09-15] MEDS: INSULIN LISPRO (AdmeLOG) 1 UNIT/0.01 ML UNIT SC (11:53)
== END 2024-09-15 17:13 | disposition home or self-care (01) | DRG 463 ==
LOC: SERX 22:02 → SERHOLD 09-15 06:27 → S3NX 09-15 06:27
PROVIDERS: Admitting Provider Student in an Organized Health Care Education/Training Program; Emergency Provider Emergency Medicine; PCP Family Medicine; Visit Provider Internal Medicine
DX: N13.6 Pyonephrosis (principal); E11.9 Type 2 diabetes mellitus without complications; R78.81 Bacteremia; B96.20 Unspecified Escherichia coli [E. coli] as the cause of diseases classified elsewhere; R16.0 Hepatomegaly, not elsewhere classified; E83.42 Hypomagnesemia; E83.39 Other disorders of phosphorus metabolism; Z87.442 Personal history of urinary calculi; Z79.84 Long term (current) use of oral hypoglycemic drugs; Z79.899 Other long term (current) drug therapy
CPT/HCPCS: 36415; 71045; 80048; 80053; 81001; 83036; 83605; 83615; 83690; 83735; 84100; 84145; 84443; 84484; 85025; 87040; 87086; 87811; 93005; 93225; 94762; 96361; 96365; 96366; 96367; 96375; 99291; J0696; J1650; J1815; J1885; J2270; J2405; J2470; J2543; J3475; J3490; J7030; J7040; J7050; J7120; A9270

== ENCOUNTER 2024-10-24 23:00 | Emergency (ER) | payer MEDICAID, SELFPAY ==
[2024-10-24 23:01] VITALS: BMI 29.2
[2024-10-24 23:17] VITALS: BP 123/78; PULSE 84; RESP 20; TEMP 37.1; O2SAT 99
[2024-10-24] MEDS: ONDANSETRON ODT 4 MG TABRAP PO (23:47)
[2024-10-24] MEDS: KETOROLAC INJ 60 MG/2 ML VIAL IM (23:47)
[2024-10-24 23:58] LABS: Collection Type, Urine Clean Catch
[2024-10-25 00:10] LABS: HCG Qualitative,Urine Negative
--- NOTE | 2024-10-25 00:29 | PD.EDFMALE ---
ED Female Urogenital RME/HPI General Chief complaint: Abdominal Pain Stated complaint: RT SIDE PAIN Time Seen by Provider: 10/24/24 23:38 Arrival date/time: 10/24/24 23:00 34F with history of HTN and DM presents to ED with 2 days of R flank pain that radiates down to groin. There is also some N/V and possible dysuria. Patient was here 2 months ago for similar complaint and had multiple large kidney stones. Patient states this feels the same. Limitations: no limitations Related Data Home Medications ?Medication ?Instructions ?Recorded ?Confirmed ferrous sulfate 325 mg (65 mg 325 mg PO QDAY 02/12/20 02/12/20 iron) tablet (iron) folic acid 1 mg tablet 1 mg PO QDAY 02/12/20 02/12/20 metformin 500 mg tablet 500 mg PO BID 09/13/24 09/13/24 Previous Rx's ?Medication ?Instructions ?Recorded acetaminophen 300 mg-codeine 30 mg 2 tab PO TID PRN pain #20 tabs 09/12/24 tablet cefuroxime axetil 500 mg tablet 500 mg PO Q12H 7 days #14 tabs 10/25/24 naproxen 500 mg tablet 500 mg PO BID PRN pain #30 tabs 10/25/24 ondansetron 4 mg disintegrating 4 mg PO Q8H PRN nausea and 10/25/24 tablet vomiting #30 tabs tamsulosin 0.4 mg capsule (Flomax) 0.4 mg PO QDAY #30 caps 10/25/24 Allergies Allergy/AdvReac Type Severity Reaction Status Date / Time No Known Allergies Allergy Verified 02/12/20 11:50 Review of Systems Review of Systems Systems Reviewed: All systems reviewed, normal except as documented Constitutional Constitutional: Reports system reviewed and no additional complaints, except as documented, Denies fever(s) and Denies headache(s) ENT Ears, Nose, Mouth, and Throat: Denies disequilibrium and Denies headache(s) Cardiovascular Cardiovascular: Reports system reviewed and no additional complaints, except as documented, Denies chest pain and Denies dyspnea Respiratory Respiratory: Reports system reviewed and no additional complaints, except as documented, Denies cough and Denies dyspnea Gastrointestinal Gastrointestinal: Reports system reviewed and no additional complaints, except as documented, Reports as per HPI, Denies abdominal pain, Reports nausea and Reports vomiting Genitourinary Genitourinary: Reports as per HPI, Reports dysuria and Reports flank pain Neurologic Neurologic: Reports system reviewed and no additional complaints, except as documented, Denies confusion, Denies disequilibrium and Denies headache(s) Psychiatric Psychiatric: Denies confusion Past Medical History Past Medical History NEUROLOGIC: Negative Neurological Disorders or Seizures CARDIAC: Positive Hypertension; Negative Cardiac Disorders or Congestive Heart Failure RESPIRATORY: Negative Chronic Obstructive Pulmonary Disease (COPD) GASTROINTESTINAL: Negative Gastrointestinal Disorders GENITOURINARY: Negative Genitourinary Disorders or Renal Disease MUSCULOSKELETAL: Negative Musculoskeletal Disorders ENDOCRINE: Positive Diabetes Mellitus Type 2; Negative Endocrine Disorders or Diabetes Mellitus Type 1 HEMATOLOGIC: Positive Blood Disorders OTHER HISTORY: Positive Blood Transfusions; Negative Autoimmune Disease, Blood Transfusion Reaction or Anesthesia Reactions Family History FAMILY HISTORY: Negative Family Psychiatric Problems, Family Respiratory Disorders, Family Cardiac Disorders, Family Gastrointestinal Problems, Family Cancer, Family Surgery or Family Anesthesia Reaction Surgical History SURGICAL: Positive Section Social History SMOKING STATUS: Never smoker SECOND HAND EXPOSURE: No ED Exam General Limitations: Present no limitations General appearance: Present alert and in no apparent distress Head Head exam: Present atraumatic Eye Eye exam: Present normal appearance, PERRL and EOMI ENT ENT exam: Present normal exam, normal oropharynx and mucous membranes moist Neck Neck exam: Present normal inspection, full ROM and trachea midline Chest Chest inspection: Present normal inspection and symmetric chest wall rise Respiratory Respiratory exam: Present normal lung sounds bilaterally Cardiovascular Cardiovascular exam: Present regular rate, normal rhythm and normal heart sounds Abdominal Exam Abdominal exam: Present soft and normal bowel sounds Extremities Exam Extremities exam: Present normal inspection and full ROM Back Exam Back exam: Present normal inspection and full ROM Neurological Exam Neurological exam: Present alert, oriented X3 and CN II-XII intact Psychiatric Psychiatric exam: Present normal affect and normal mood Skin Skin exam: Present warm, dry, intact and normal color Course Quality Measures none Orders Category Date Time Status HCG Qualitative,Urine Stat Lab 10/24/24 23:50 Completed Urinalysis, C/S if Indicated Stat Lab 10/24/24 23:50 Completed Urine Culture Stat Lab 10/24/24 23:50 Received Ketorolac Inj [Toradol Inj] Med 10/24/24 23:38 Discontinued 60 mg IM X1 ONE Ondansetron Odt [Zofran Odt] Med 10/24/24 23:38 Discontinued 4 mg PO X1 ONE Tamsulosin HCl [Flomax] Med 10/25/24 01:38 Discontinued 0.4 mg PO X1 ONE cefuroxime axetiL [cefUROXime axetil] Med 10/25/24 01:35 Discontinued 500 mg PO X1 ONE Vital Signs Vital signs: Vital Signs Temperature 98.7 F 10/24/24 23:17 Pulse Rate 84 10/24/24 23:17 Respiratory Rate 20 10/24/24 23:17 Blood Pressure 123/78 10/24/24 23:17 Pulse Oximetry (%) 99 10/24/24 23:17 Oxygen Delivery Method Room Air 10/24/24 23:17 O2 at 99% on RA and WNLs Urogenital - Female MDM Narrative MDM Narrative:: 34F with history of HTN and DM presents to ED with 2 days of R flank pain that radiates down to groin. There is also some N/V and possible dysuria. Patient was here 2 months ago for similar complaint and had multiple large kidney stones. Patient states this feels the same. Physical exam reveals no flank/ab/pelvic tenderness. Patient is afebrile, alert, but appears to be in pain. Patient does not want repeat CT/blood work and prefers only meds. US suggests UTI. Patient feels better after meds. Meds and parliamentary counsel given. Patient data External records reviewed:: [facility] previous records Clinical information provided by:: patient Social determinants that could affect healthcare access:: none Patient has the following chronic illnesses:: DM and HTN How is presenting disease/condition affected by chronic disease/condition?: exacerbated by Evaluation data The following diagnostics were reviewed and interpreted by me:: lab results Lab and/or radiology exams considered but not ordered:: ordered Interpretation Summary: above Medications / Prescriptions Medications or Prescriptions considered but not ordered:: ordered Medication administrations:: Medication Administration History Discontinued Medications Cefuroxime Axetil (Cefuroxime Axetil 250 Mg Tablet) 500 mg PO X1 ONE Stop: 10/25/24 01:36 Last Admin: 10/25/24 01:44 Dose: 500 mg Documented By: LIZET Ketorolac Tromethamine (Ketorolac Inj 60 Mg/2 Ml Vial) 60 mg IM X1 ONE Stop: 10/24/24 23:39 Last Admin: 10/24/24 23:47 Dose: 60 mg Documented By: LIZET Ondansetron HCl (Ondansetron Odt 4 Mg Tabrap) 4 mg PO X1 ONE; Protocol Stop: 10/24/24 23:39 Last Admin: 10/24/24 23:47 Dose: 4 mg Documented By: LIZET Tamsulosin HCl (Tamsulosin Hcl 0.4 Mg Capsule) 0.4 mg PO X1 ONE Stop: 10/25/24 01:39 Last Admin: 10/25/24 01:44 Dose: 0.4 mg Documented By: LIZET above Consultations Consultation(s) initiated? (list below): No Diagnosis Urogenital Female Differential Diagnosis: urinary tract infection, bacterial vaginosis, trichomoniasis, cervicitis, ovarian cyst, vaginitis, ruptured ovarian cyst, cyst of Bartholin's gland, cystitis, dysmenorrhea and other (kidney stone, appy, torsion, renal colic) Most likely diagnosis given after review of the tests above:: UTI and renal colic Admission Indicated Admission indicated?: not indicated Admission Request Was there a request for admission?: No Disposition Plan Disposition Plan: Discharge Discharge Attestation Discharge Attestation: The patient and all family members were given an opportunity to ask questions and understood the discharge instructions. Discharge instructions specifically effects, indications for sooner follow up or return to the emergency department, and the expected course of current diagnosis. Patient condition: Stable Discharge Plan Plan Patient Disposition: HOME (Self Care) Disposition Comment: Stable Prescriptions/Referrals Prescriptions/Med Rec: New ondansetron 4 mg tablet,disintegrating 4 mg PO Q8H PRN (Reason: nausea and vomiting) Qty: 30 0RF cefuroxime axetil 500 mg tablet 500 mg PO Q12H 7 Days Qty: 14 0RF tamsulosin [Flomax] 0.4 mg capsule 0.4 mg PO QDAY Qty: 30 0RF naproxen 500 mg tablet 500 mg PO BID PRN (Reason: pain) Qty: 30 0RF No Action ferrous sulfate [iron] 325 mg (65 mg iron) Tablet 325 mg PO QDAY folic acid 1 mg Tablet 1 mg PO QDAY acetaminophen-codeine 300-30 mg tablet 2 tab PO TID MDD 6 PRN (Reason: pain) Qty: 20 0RF metformin 500 mg tablet 500 mg PO BID Referrals: No Primary/Family,Physician [Primary Care Provider] - In 1 week Problem List Clinical Impression: Urinary tract infection, Renal colic Patient/Caregiver Discharge Instructions Education Materials: ED CYSTITIS Female Adult Additional Instructions: Please follow-up with PCP within 24-48 hours and return immediately if symptoms worsen. Follow-up with PCP for referral to urologist for likely kidney stones. Do not take Naproxen with ibuprofen/Advil. Can take together with Tylenol. Print Language: Central African Stand Alone Forms: Patient Portal Info Letter PA/BIRD Supervising Physician PA/BIRD Supervising Physician: Dr. Mirza
[2024-10-25 00:30] LABS: Bacteria,Urine 1+; Bilirubin,Urine Negative (Negative); Blood,Urine 2+ (Negative); Color,Urine Yellow (Lt Yel-Yel); Glucose, Urine Negative (Negative); Ketones,Urine Negative (Negative); Leukocyte Esterase,Urine Positive (Negative); Nitrite,Urine Negative (Negative); PH,Urine 5.5 (5.0-7.0); Protein,Urine 1+ (Neg - Trace); RBC,Urine 24 /hpf (0-3); Specific Gravity,Urine 1.033 (1.001-1.035); Squamous Epithelial Cell,Urine 7 /hpf (0-5); Urobilinogen,Urine Negative mg/dL (0.0-1.0); WBC,Urine 47 /hpf (0-5)
[2024-10-25 00:40] LABS: Clarity,Urine Turbid (Clear/Hazy); Culture Indicated,Urine Yes
[2024-10-25] MEDS: TAMSULOSIN HCL 0.4 MG CAPSULE PO (01:44)
[2024-10-25] MEDS: cefuroxime axetiL 250 MG TABLET 500 MG PO (01:44)
== END 2024-10-25 01:46 | disposition home or self-care (01) ==
PROVIDERS: Physician Assistant; Emergency Provider Emergency Medicine
DX: N39.0 Urinary tract infection, site not specified (principal); N23 Unspecified renal colic
CPT/HCPCS: 81001; 81025; 87077; 87086; 87186; 96372; 99283; J1885; Q0162; A9270

== ENCOUNTER 2024-12-23 08:34 | Emergency (ER) | payer MEDICAID, SELFPAY ==
[2024-12-23] VITALS (9 sets, daily range): BP systolic 98–131; BP diastolic 57–77; PULSE 92–125; RESP 14–20; TEMP 36.7–37.6; O2SAT 98–100; BMI 32.1
--- NOTE | 2024-12-23 08:54 | XR_ITS ---
Examination: Pelvic ultrasound, transabdominal, complete Technique: Transabdominal ultrasound of the pelvis performed using grayscale imaging Date and time of exam: December 23, 2024 0903 hours INDICATIONS: Onset right-sided pelvic pain today FINDINGS: Uterus 7.0 cm endometrial stripe 0.8 cm No uterine mass or intrauterine gestation Right ovary 2.7 cm arterial flow 20 x 13 mm cyst Left ovary obscured by bowel gas IMPRESSION: Simple right ovarian cyst 20 x 13 x 12 mm
[2024-12-23 09:40] LABS: Collection Type, Urine Voided
[2024-12-23 09:52] LABS: HCG Qualitative,Urine Negative
[2024-12-23 09:56] LABS: Bacteria,Urine Rare; Bilirubin,Urine Negative (Negative); Blood,Urine Trace (Negative); Clarity,Urine Clear (Clear/Hazy); Color,Urine Lt-Yellow (Lt Yel-Yel); Culture Indicated,Urine Not Indicated; Glucose, Urine Negative (Negative); Ketones,Urine Negative (Negative); Leukocyte Esterase,Urine Negative (Negative); Nitrite,Urine Negative (Negative); Protein,Urine Trace (Neg - Trace); RBC,Urine 6 /hpf (0-3); Specific Gravity,Urine 1.032 (1.001-1.035); Squamous Epithelial Cell,Urine 3 /hpf (0-5); Urobilinogen,Urine Negative mg/dL (0.0-1.0); WBC,Urine 3 /hpf (0-5)
[2024-12-23 10:12] LABS: Basophils % (Auto) 0 % (0-2.5); Eosinophils % (Auto) 0 % (0-10); Hematocrit 39.4 % (36.0-46.0); Hemoglobin 13.7 g/dL (12.0-16.0); Immature Granulocytes % (Auto) 1 % (0-0); Immature Granulocytes Auto 0.13 Thou/mm3 (0.00-0.00); Lymphocytes # (Auto) 0.5 Thou/mm3 (1.0-4.8); Lymphocytes % (Auto) 3 % (10-50); Mean Corpuscular HGB Conc 34.8 g/dl (31.0-37.0); Mean Corpuscular Hemoglobin 29.9 pg (25.0-35.0); Mean Corpuscular Volume 86 fL (80-100); Monocytes # (Auto) 0.3 Thou/mm3 (0.0-0.8); Monocytes % (Auto) 2 % (0-12); Neutrophils # (Auto) 16.3 Thou/mm3 (1.8-7.7); Neutrophils % (Auto) 94 % (37-80); Nucleated Red Blood Cell % 0 /100 WBC (0); Platelet Count 166 Thou/mm3 (140-440); RDW Standard Deviation 40.9 fL (36.4-46.3); Red Blood Count 4.58 Miln/mm3 (4.00-5.20); White Blood Count 17.2 Thou/mm3 (3.6-11.0)
--- NOTE | 2024-12-23 10:28 | PD.EDRME ---
Rapid Medical Screening Exam RME Arrival date/time: 12/23/24 08:34 This is a 34-year-old female that complains of lower right pelvic pain. patient denies urinary symptoms. Patient states that she is currently on control that is in her arm. Patient denies nausea vomiting diarrhea. I have greeted and performed a focused initial assessment of this patient. Initial appropriate labs ordered at this time. A comprehensive ED assessment and evaluation of the patient and analysis of all test and completion of medical decision making process will be conducted by additional ED provider. Chief Complaint: Abdominal Pain Time Seen by Provider: 12/23/24 08:39 Vital signs: Vital Signs Temperature 99 F 12/23/24 08:49 Pulse Rate 101 H 12/23/24 08:49 Respiratory Rate 18 12/23/24 08:49 Blood Pressure 118/74 12/23/24 08:49 Pulse Oximetry (%) 98 12/23/24 08:49 Oxygen Delivery Method Room Air 12/23/24 08:49
[2024-12-23 10:34] LABS: Alanine Aminotransferase 11 U/L (10-49); Albumin, Serum 4.4 gm/dL (3.5-5.0); Albumin/Globulin Ratio 1.5 (1.2-2.2); Alkaline Phosphatase 111 U/L (46-116); Anion Gap 12 (7-16); Aspartate Amino Transferase 14 U/L (0-34); BUN/Creatinine Ratio 16 Ratio (12-20); Bilirubin,Total 0.8 mg/dL (0.3-1.2); Blood Urea Nitrogen 16 mg/dL (9-23); Calcium 8.9 mg/dL (8.3-10.6); Calcium (Corrected) 8.9 mg/dL (8.5-10.1); Carbon Dioxide 21.3 mMol/L (20.0-31.0); Chloride 105 mMol/L (98-107); Globulin 2.9 gm/dL (2.3-3.5); Glucose 154 mg/dL (74-106); Osmolality,Calculated 279 (275-295); Potassium 4.2 mMol/L (3.4-5.1); Sodium 138 mMol/L (136-145); Total Protein 7.3 gm/dL (5.7-8.2); eGFR > 60 See Note
--- NOTE | 2024-12-23 11:36 | XR_ITS ---
Examination: CT abdomen and pelvis without contrast. Coronal 3-D reconstructions. Sagittal 2-D reconstructions. Date and time of exam:December 23, 2024 1150 hours Comparison September 12, 2024 INDICATIONS: Onset right-sided flank pain today CTDI: vol (mGy): 7.9 DLP: (mGycm): 145 Technique: Axial images of the abdomen have been obtained, 3 mm slice thickness Intravenous contrast material has not been administered. Low dose protocols were performed. One or more of the following dose reduction techniques were used; automated exposure control, adjustment of the mA and/or KV according to patient size, use of iterative reconstruction technique. Findings: Fatty infiltration throughout the liver no focal liver or splenic lesion No gallstones 8mm posterior right renal calculus Mild right hydronephrosis secondary to 14 mm calculus right ureteropelvic junction Normal appendix No left hydronephrosis No bowel obstruction No pelvic mass No bladder mass IMPRESSION: Mild right hydronephrosis secondary to 14 mm calculus right ureteropelvic junction
--- NOTE | 2024-12-23 11:37 | EDNOTE_ITS ---
<Statement entered by Cecilia Prince MD - 12/24/24 09:00> As co-signing physician, I was present and available for consult prn. I concur with the plan and care as documented by the midlevel provider. ED General RME/HPI General Chief complaint: Abdominal Pain Stated complaint: RIGHT ABD PAIN WITH NAUSEA Time Seen by Provider: 12/23/24 08:39 Arrival date/time: 12/23/24 08:34 CC: Right flank pain right abdominal pain HPI onset 48 hours with progressive increase in severity with nausea no vomiting. Patient has a significant past medical history for pyelonephritis and sepsis recently discharged from this facility for the same. Patient is pale but mildly diaphoretic in mild disco mfort but not in any acute distress. Patient is noted to be tachycardic. RME / HPI RME / HPI narrative: 12/23/24 08:34 This is a 34-year-old female that complains of lower right pelvic pain. patient denies urinary symptoms. Patient states that she is currently on control that is in her arm. Patient denies nausea vomiting diarrhea. I have greeted and performed a focused initial assessment of this patient. Initial appropriate labs ordered at this time. A comprehensive ED assessment and evaluation of the patient and analysis of all test and completion of medical decision making process will be conducted by additional ED provider. Related Data Home Medications ?Medication ?Instructions ?Recorded ?Confirmed ferrous sulfate 325 mg (65 mg 325 mg PO QDAY 02/12/20 02/12/20 iron) tablet (iron) folic acid 1 mg tablet 1 mg PO QDAY 02/12/20 metformin 500 mg tablet 500 mg PO BID 09/13/2409/13 Previous Rx's ?Medication ?Instructions ?Recorded acetaminophen 300 mg-codeine 30 mg 2 tab PO TID PRN pa in #20 tabs 09/12/24 tablet naproxen 500 mg tablet 500 mg PO BID PRN pain #30 t abs 10/25/24 ondansetron 4 mg disintegrating 4 mg PO Q8H PRN nausea and 10/25/24 tablet vomiting #30 tabs tamsulosin 0.4 mg capsule (Flomax) 0.4 mg PO QDAY #30 caps 10/25/24 Allergies Allergy/AdvReac Type Severity Reaction Status Date / Time No Known Allergies Allergy Verified 12/23/24 08:38 Review of Systems Review of Systems Narrative Review of Systems: GEN: No fever, no chills, no weight loss EYES: No discharge, no visual changes, no pain HEENT: No ear pain, no congestion, no sore throat PULM: No shortness of breath, no cough, no congestion CV: No chest pain, no dyspnea on exertion, no palpitations GI: + nausea, no vomiting, no diarrhea, + pain, no constipation : No frequency, no urgency, no dysuria MUSC/SKEL: No joint pain, + back pain SKIN: No rash PSYCH: No hallucinations, no depression HEME/LYMPH: No easy bleeding or bruising tendencies NEURO: No weakness, no headache ED Exam Narrative Physical exam: [General: Moderate discomfort acute distress Head normocephalic HEENT: Within acceptable limits Neck is supple nontender Chest equal chest rise nontender to palpation Respiratory: Clear to auscultation no wheezes crackles or rubs CV: Rate rhythm is regular no murmurs rubs or clicks Abdomen is distended secondary to body habitus soft nontender no masses positive bowel sounds all 4 quadrants Back: No CVA tenderness no spinous process tenderness from cervical spine thoracic and lumbar spine Skin: Intact no petechiae rash induration ulceration or crepitus Extremities: Moving all extremity against resistance cap refill less than 2 seconds neurosensory intact Neuro: Awake alert oriented x3 Glascow coma 15 no focal deficits] Course Course Course Narrative: Patient's case presented to Dr. Joni Vazquez urologist at [facility] agrees to accept the patient for admission. Quality Measures none Orders Category Date Time Status Saline [Insert IV] NOW Care 12/23/24 11:36 Completed Referral - Legal Adviser Stat Cons 12/23/24 12:[address] abdomen pelvis wo con Stat Exams 12/23/24 11:36 Completed US pelvic complete Stat Exams 12/23/24 08:54 Completed CBC Stat Lab 12/23/24 09:58 Completed Comprehensive Metabolic Panel Stat Lab 12/23/24 09:58 Completed HCG Qualitative,Urine Stat Lab 12/23/24 09:35 Completed Urinalysis, C/S if Indicated Stat Lab 12/23/24 09:35 Completed Ketorolac Inj [Toradol Inj] Med 12/23/24 12:58 Discontinued 15 mg IVP X1 ONE Morphine Inj Med 12/23/24 11:36 Discontinued 4 mg IVP X1 ONE Ondansetron Inj [Zofran Inj] Med 12/23/24 11:36 Discontinued 4 mg IV X1 ONE Sodium Chloride 0.9% 1000 ml [Ns] 1,000 ml Med 12/23/24 11:36 Discontinued IV 999 mls/hr Sodium Chloride 0.9% 1000 ml [Ns] 1,000 ml Med 12/23/24 19:46 Discontinued IV 999 mls/hr oxyCODONE/APAP 5/325 [Percocet 5/325] Med 12/23/24 19:02 Discontinued 1 tab PO X1 ONE Vital Signs Vital signs: Vital Signs Temperature 99 F 12/23/24 08:49 Pulse Rate 101 H 12/23/24 08:49 Respiratory Rate 18 12/23/24 08:49 Blood Pressure 118/74 12/23/24 08:49 Pulse Oximetry (%) 98 12/23/24 08:49 Oxygen Delivery Method Room Air 12/23/24 08:49 Discharge Plan Plan Patient Disposition: [facility] Facility Pt Being Transferred to: [facility] Service Needed for Transfer: Urology Prescriptions/Referrals Prescriptions/Med Rec: No Action ferrous sulfate [iron] 325 mg (65 mg iron) Tablet 325 mg PO QDAY folic acid 1 mg Tablet 1 mg PO QDAY acetaminophen-codeine 300-30 mg tablet 2 tab PO TID MDD 6 PRN (Reason: pain) Qty: 20 0RF metformin 500 mg tablet 500 mg PO BID ondansetron 4 mg tablet,disintegrating 4 mg PO Q8H PRN (Reason: nausea and vomiting) Qty: 30 0RF tamsulosin [Flomax] 0.4 mg capsule 0.4 mg PO QDAY Qty: 30 0RF naproxen 500 mg tablet 500 mg PO BID PRN (Reason: pain) Qty: 30 0RF Referrals: Ottoniel Fitch MD [Primary Care Provider] - In 1 week Problem List Clinical Impression: Urolithiasis, Hydroureter, Acute right flank pain Patient/Caregiver Discharge Instructions Print Language: Italian Stand Alone Forms: Anabella Award Info., Patient Portal Info Letter PA/DENTIST/OWNER Supervising Physician PA/DENTIST/OWNER Supervising Physician: Adithya Tipton ENP [facility] Clinical Information Provided by: patient Medical Records reviewed [facility] Meds/Rx considered, not ordered None Labs/Rad/Tests considered, not ordered None Labs Labs: Interpreted by ma Lab(s) Interpretation(s): CBC shows a leukocytosis of 17.2 no anemia or thrombocytopenia no bandemia CMP shows no significant electrolyte imbalances other than the glucose of 154. No transaminitis or T. bili elevation. Urine shows 6 RBCs rare bacteria no leukocyte esterase. Imaging Imaging interpretation: Interpreted by ma Imaging Interpretation(s): Ultrasound shows a single ovarian cyst. CT shows 14 mm stone at the ureteropelvic junction causing mild hydro-. Medication Administration(s) Medication Administration History Discontinued Medications Sodium Chloride (Ns) 1,000 mls @ 999 mls/hr IV .Q1H1M ONE Stop: 12/23/24 12:36 Last Infusion: 12/23/24 12:57 Dose: Infused Documented By: Admin: 12/23/24 12:18 Dose: 999 mls/hr Documented By: GM Sodium Chloride (Ns) 1,000 mls @ 999 mls/hr IV .Q1H1M ONE Stop: 12/23/24 20:46 Last Infusion: 12/23/24 20:53 Dose: Infused Documented By: Admin: 12/23/24 19:49 Dose: 999 mls/hr Documented By: DT Ketorolac Tromethamine (Ketorolac Inj 30 Mg/Ml Vial) 15 mg IVP X1 ONE Stop: 12/23/24 12:59 Last Admin: 12/23/24 13:15 Dose: 15 mg Documented By: GM Morphine Sulfate (Morphine Sulf Inj 10 Mg/Ml Vial) 4 mg IVP X1 ONE Stop: 12/23/24 11:37 Last Admin: 12/23/24 12:16 Dose: 4 mg Documented By: GM Ondansetron HCl (Ondansetron Inj 2 Mg/Ml Inj 2 Ml) 4 mg IV X1 ONE; Protocol Stop: 12/23/24 11:37 Last Admin: 12/23/24 12:15 Dose: 4 mg Documented By: GM Oxycodone/Acetaminophen (Oxycodone/Apap 5/325 Tablet) 1 tab PO X1 ONE Stop: 12/23/24 19:03 Last Admin: 12/23/24 19:20 Dose: 1 tab Documented By: DT
[2024-12-23] MEDS: ONDANSETRON INJ 2 MG/ML INJ 2 ML 4 MG IV (12:15)
[2024-12-23] MEDS: MORPHINE SULF INJ 10 MG/ML VIAL 4 MG IVP (12:16)
[2024-12-23] MEDS: SODIUM CHLORIDE 0.9% 1000 ML 1,000 ML 999 ML IV ×2 (12:18→19:49)
--- NOTE | 2024-12-23 12:30 | PC.CC ---
Addendum entered by Twan Ann RN 12/23/24 16:19: called [facility], spoke to Wanda to inform her of scheduled sweet pickle maker time of 1999 ton. Addendum entered by Twan Ann RN 12/23/24 16:16: 1537: transfer packet with 1 CD inside including all signatures kept with chart, bedside nurse informed about packet and number to call report is on tracker. Sent paperwork to [facility] through [employer], spoke to Alejandra at [facility], earliest sweet pickle maker time scheduled for 1999. ED hot car charger Jerrica informed of sweet pickle maker time. Addendum entered by Twan Ann RN 12/23/24 14:59: 1457: foreign called back with accepting information. pt is accepted at [facility] for ED-ED transfer and is accepting is Dr. Blanco Urologist. Report can be called EMS triage at [phone]. foreign called for peer to peer, call connected to Rangel Tipton and Dr. Blanco. Addendum entered by Twan Ann RN 12/23/24 14:31: Foreign transferred to [facility] at this time Addendum entered by Twan Ann RN 12/23/24 14:30: u/s pelvic images and ct abd/pelv pushed through via synapse to [facility] Addendum entered by Twna Ann RN 12/23/24 14:28: 1418: spoke to foreign at [facility] Addendum entered by Twan Ann RN 12/23/24 13:30: faxed clinical documents to [facility] and [facility] Original Note: 1318: received call from Jeffrey from [facility] they are in code surge and declined transfer request d/t capacity. We can reach out in 4 hours if transfer is still needed. 1307: Spoke to Jeffrey and initated the transfer. Jeffrey wanted to speak to [facility], conference call connected. 1256: clinical documents faxed to [facility] 1230: received a transfer order from [facility]. Urology services requested 14mm calculus rt ureteropelvic junction
[2024-12-23] MEDS: KETOROLAC INJ 30 MG/ML VIAL 15 MG IVP (13:15)
[2024-12-23] MEDS: oxyCODONE/APAP 5/325 TABLET 1 TAB PO (19:20)
--- NOTE | 2024-12-23 20:46 | PC.NURSE ---
Informed Provider pt heart rate in the 120's and afebrile. orders recieved.
--- NOTE | 2024-12-23 21:01 | PC.LAC ---
Nurse to nurse report given over the phone to Veronika MICHAEL at [facility]. informed RN pt transported to their facility @ 2100
== END 2024-12-23 21:00 | disposition short-term general hospital (02) ==
PROVIDERS: Nurse Practitioner Family; Emergency Provider Emergency Medicine; PCP Family Medicine
DX: N20.9 Urinary calculus, unspecified (principal); N13.4 Hydroureter
CPT/HCPCS: 36415; 74176; 76856; 80053; 81001; 81025; 85025; 96361; 96374; 96375; 99285; J1885; J2270; J2405; J7030; A9270